=== PATIENT | female | born 1940 | race African-American/Black ===

== ENCOUNTER 2017-12-10 12:05 | Emergency (ER) | payer OTHER ==
[2017-12-10 12:20] LABS: POC GLUCOSE 232 mg/dL (70-99)
[2017-12-10] MEDS: oxyCODONE/APAP 5/325 1 TAB TABLET PO (13:15)
[2017-12-10] MEDS ORDERED: LIDOCAINE WITH 8.4% SOD BICARB 3 ML DISP.SYRIN. (13:29)
[2017-12-10] MEDS: LIDOCAINE WITH 8.4% SOD BICARB 3 ML DISP.SYRIN. INJ (13:30)
[2017-12-10] MEDS: LIDOCAINE 2% 20 ML VIAL. IJ (13:30)
== END 2017-12-10 14:34 | disposition home or self-care (01) ==
LOC: ER 12:05
DX: K65.1 Peritoneal abscess (principal); L02.31 Cutaneous abscess of buttock; L02.411 Cutaneous abscess of right axilla; E11.22 Type 2 diabetes mellitus with diabetic chronic kidney disease; I12.9 Hypertensive chronic kidney disease with stage 1 through stage 4 chronic kidney disease, or unspecified chronic kidney disease; N18.9 Chronic kidney disease, unspecified; E78.00 Pure hypercholesterolemia, unspecified; Z90.710 Acquired absence of both cervix and uterus; M19.90 Unspecified osteoarthritis, unspecified site
CPT/HCPCS: 10061; 82962; 99284-25

== ENCOUNTER 2017-12-12 13:55 | Inpatient (IN) | payer OTHER ==
[2017-12-12] MEDS: IV NORMAL SALINE 1000ML BAG 1,000 ML IV ×3 (15:30→22:22)
[2017-12-12] MEDS ORDERED: PROCHLORPERAZINE 25 MG SUPP.RECT. PR (15:45)
[2017-12-12] MEDS ORDERED: DEXTROSE 50% 25 GM / 50ML DISP.SYRIN. IV ×2 (15:45)
[2017-12-12] MEDS ORDERED: PIP/TAZO PER PHARMACY MC (15:45)
[2017-12-12] MEDS ORDERED: IV NORMAL SALINE 1000ML BAG 1,000 ML IV (15:45)
[2017-12-12] MEDS ORDERED: VANCOMYCIN PER PHARMACY MC (15:45)
[2017-12-12] MEDS ORDERED: BISACODYL 10 MG SUPP.RECT. PR (15:45)
[2017-12-12] MEDS ORDERED: MORPHINE SULFATE 4 MG/ML DISP.SYRIN. IV (15:45)
[2017-12-12] MEDS ORDERED: ONDANSETRON PF 4 MG/2 ML VIAL. IV (15:45)
[2017-12-12] MEDS ORDERED: MAG HYDROX/ALUMINUM HYD/SIMETH 30 ML ORAL.SUSP PO (15:45)
[2017-12-12] MEDS ORDERED: PROCHLORPERAZINE 10 MG/2 ML VIAL. IV (15:45)
[2017-12-12] MEDS ORDERED: ACETAMINOPHEN 325 MG TABLET. PO (15:45)
[2017-12-12] MEDS ORDERED: CALCIUM CARBONATE 500 MG TAB.CHEW PO (15:45)
[2017-12-12] MEDS ORDERED: MAGNESIUM HYDROXIDE 2,400 MG/30 ML ORAL.SUSP. PO (15:45)
[2017-12-12 16:09] LABS: BASO # 0.1 x10^3/uL (0.0-0.2); BASO % 1 % (0-3); EOS # 0.1 x10^3/uL (0.0-0.7); EOS % 1 % (0-3); HEMATOCRIT 27.2 % (36.0-47.0); HEMOGLOBIN 8.5 g/dL (12.0-15.5); LYMPH % 6 % (24-48); MEAN CORPUSCULAR HEMOGLOBIN 23 pg (25-35); MEAN CORPUSCULAR HGB CONC 31 g/dL (31-37); MEAN CORPUSCULAR VOLUME 74 fL (79-100); MONO % 6 % (0-9); NEUT # 13.8 x10^3uL (1.8-7.7); NEUT % 86 % (31-73); PLATELET COUNT 236 x10^3/uL (140-400); RED CELL DISTRIBUTION WIDTH 14.6 % (11.5-14.5)
[2017-12-12 16:12] LABS: ADD MAN DIFF? YES
[2017-12-12] MEDS: VANCOMYCIN PER PHARMACY MC ×2 (16:18→16:43)
[2017-12-12 16:24] LABS: ANION GAP 10 (6-14); BLOOD UREA NITROGEN 34 mg/dL (7-20); BUN/CREATININE RATIO 17 (6-20); CALCIUM 9.7 mg/dL (8.5-10.1); CARBON DIOXIDE 24 mmol/L (21-32); CHLORIDE 97 mmol/L (98-107); GFR 29.2; GLUCOSE 306 mg/dL (70-99); POTASSIUM 4.8 mmol/L (3.5-5.1); SODIUM 131 mmol/L (136-145)
[2017-12-12 16:31] LABS: % BANDS 1 % (0-9); % LYMPHS 7 % (24-48); % MONOS 7 % (0-10); % SEGS 85 % (35-66); ALBUMIN 2.4 g/dL (3.4-5.0); ALBUMIN/GLOBULIN RATIO 0.5 (1.0-1.7); ALK PHOS 120 U/L (46-116); ALT (SGPT) 9 U/L (14-59); AST (SGOT) 11 U/L (15-37); TOTAL BILIRUBIN 0.5 mg/dL (0.2-1.0); TOTAL PROTEIN 7.4 g/dL (6.4-8.2)
[2017-12-12 16:32] LABS: HYPOCHROMIA MOD; MICROCYTOSIS MARKED; PLT ESTIMATE ADEQUATE (ADEQUATE); POLYCHROMASIA SLIGHT
[2017-12-12 16:51] LABS: LACTIC ACID 1.2 mmol/L (0.4-2.0)
[2017-12-12] MEDS ORDERED: INSULIN LISPRO 300 UNITS/3 ML INSULN.PEN. SQ (17:00)
[2017-12-12] MEDS: ENOXAPARIN 40 MG/0.4 ML SYRINGE. SQ ×2 (17:00→20:26)
[2017-12-12 17:01] LABS: C-REACTIVE PROTEIN 321.5 mg/L (0-3.3)
[2017-12-12 17:23] LABS: SEDIMENTATION RATE 103 (0-25)
[2017-12-12 17:38] LABS: POC GLUCOSE 234 mg/dL (70-99)
[2017-12-12] MEDS: PIPERACILLIN/TAZOBACTAM 2.25 GM in IV NORMAL SALINE 50ML 50 ML IV (18:12)
[2017-12-12] MEDS: oxyCODONE IR 5 MG TABLET PO (18:25)
[2017-12-12] MEDS: INSULIN LISPRO 300 UNITS/3 ML INSULN.PEN. SQ (18:28)
[2017-12-12] MEDS: VANCOMYCIN 2 GM in IV DEXTROSE 5% 500 ML IV (20:25)
[2017-12-12] MEDS: LACTOBACILLUS RHAMNOSUS GG 1 CAPSULE. PO (21:00)
[2017-12-12] MEDS: DOCUSATE SODIUM 100 MG CAPSULE. PO (21:00)
[2017-12-12 21:32] LABS: POC GLUCOSE 283 mg/dL (70-99)
[2017-12-12] MEDS ORDERED: PIPERACILLIN/TAZOBACTAM 3.375 GM in IV NORMAL SALINE 50ML 50 ML IV (22:00)
[2017-12-13] MEDS: MORPHINE SULFATE 4 MG/ML DISP.SYRIN. IV (04:04)
[2017-12-13 05:03] LABS: ADD MAN DIFF? NO
[2017-12-13 05:28] LABS: BASO % 0 % (0-3); EOS # 0.2 x10^3/uL (0.0-0.7); EOS % 1 % (0-3); HEMATOCRIT 26.7 % (36.0-47.0); HEMOGLOBIN 8.4 g/dL (12.0-15.5); LYMPH # 1.2 x10^3/uL (1.0-4.8); LYMPH % 10 % (24-48); MEAN CORPUSCULAR HEMOGLOBIN 23 pg (25-35); MEAN CORPUSCULAR HGB CONC 31 g/dL (31-37); MEAN CORPUSCULAR VOLUME 73 fL (79-100); MONO # 0.9 x10^3/uL (0.0-1.1); MONO % 8 % (0-9); NEUT # 9.4 x10^3uL (1.8-7.7); NEUT % 80 % (31-73); PLATELET COUNT 233 x10^3/uL (140-400); RED BLOOD COUNT 3.66 x10^6/uL (3.50-5.40); RED CELL DISTRIBUTION WIDTH 14.2 % (11.5-14.5); WHITE BLOOD COUNT 11.7 x10^3/uL (4.0-11.0)
[2017-12-13 05:55] LABS: ALBUMIN 2.3 g/dL (3.4-5.0); ALBUMIN/GLOBULIN RATIO 0.5 (1.0-1.7); ALK PHOS 113 U/L (46-116); ALT (SGPT) 8 U/L (14-59); ANION GAP 12 (6-14); AST (SGOT) 14 U/L (15-37); BLOOD UREA NITROGEN 28 mg/dL (7-20); BUN/CREATININE RATIO 18 (6-20); CALCIUM 8.6 mg/dL (8.5-10.1); CARBON DIOXIDE 23 mmol/L (21-32); CHLORIDE 101 mmol/L (98-107); CREATININE 1.6 mg/dL (0.6-1.0); GFR 37.7; GLUCOSE 211 mg/dL (70-99); POTASSIUM 4.6 mmol/L (3.5-5.1); SODIUM 136 mmol/L (136-145); TOTAL BILIRUBIN 0.5 mg/dL (0.2-1.0); TOTAL PROTEIN 6.5 g/dL (6.4-8.2)
[2017-12-13] MEDS: PIPERACILLIN/TAZOBACTAM 2.25 GM in IV NORMAL SALINE 50ML 50 ML IV ×5 (06:01→23:44)
[2017-12-13] MEDS: ACETAMINOPHEN 325 MG TABLET. PO (06:07)
[2017-12-13 07:33] LABS: POC GLUCOSE 183 mg/dL (70-99)
[2017-12-13] MEDS: DOCUSATE SODIUM 100 MG CAPSULE. PO ×2 (07:46→21:00)
[2017-12-13] MEDS: LACTOBACILLUS RHAMNOSUS GG 1 CAPSULE. PO ×2 (07:46→21:04)
[2017-12-13] MEDS: INSULIN LISPRO 300 UNITS/3 ML INSULN.PEN. SQ ×3 (07:46→17:29)
[2017-12-13] MEDS: IV RINGERS,LACTATED 1000ML 1,000 ML IV (09:04)
[2017-12-13] MEDS ORDERED: ONDANSETRON PF 4 MG/2 ML VIAL. IV (09:15)
[2017-12-13] MEDS ORDERED: MORPHINE SULFATE 4 MG/ML DISP.SYRIN. IV (09:15)
[2017-12-13] MEDS ORDERED: LIDOCAINE 1% PF 2 ML VIAL. ID (09:15)
[2017-12-13] MEDS ORDERED: PROCHLORPERAZINE 10 MG/2 ML VIAL. IV (09:15)
[2017-12-13] MEDS ORDERED: SEVOFLURANE 61 TO 120 MINUTES. IH (09:17)
[2017-12-13] MEDS ORDERED: DEXAMETHASONE SOD PHOS 20 MG/5 ML VIAL. (09:18)
[2017-12-13] MEDS ORDERED: fentaNYL PF VIAL 100 MCG/2 ML VIAL ×2 (09:18→11:03)
[2017-12-13] MEDS ORDERED: PROPOFOL 20 ML IV (09:18)
[2017-12-13] MEDS ORDERED: LIDOCAINE 2% PF Vial for OR 5 ML VIAL. (09:18)
[2017-12-13] MEDS ORDERED: ONDANSETRON PF 4 MG/2 ML VIAL. (09:18)
[2017-12-13] MEDS: IV NORMAL SALINE 1000ML BAG 1,000 ML IV ×2 (09:34→16:51)
[2017-12-13] MEDS ORDERED: ePHEDrine PF IN SALINE 50 MG/5 ML DISP.SYRIN IV (10:54)
[2017-12-13] MEDS: fentaNYL PF VIAL 100 MCG/2 ML VIAL IV ×3 (11:27→12:07)
[2017-12-13 11:39] LABS: POC GLUCOSE 210 mg/dL (70-99)
[2017-12-13] MEDS: INSULIN ASPART 100 UNIT/ML 10ML VIAL. SQ (12:10)
[2017-12-13] MEDS: oxyCODONE IR 5 MG TABLET PO ×2 (12:56→16:54)
[2017-12-13] MEDS: VANCOMYCIN 1 GM in IV DEXTROSE 5 %-0.2 % NACL 250 ML IV (16:50)
[2017-12-13] MEDS: ENOXAPARIN 40 MG/0.4 ML SYRINGE. SQ (16:51)
[2017-12-13 16:59] LABS: POC GLUCOSE 405 mg/dL (70-99)
[2017-12-13] MEDS ORDERED: VANCOMYCIN 1.25 GM in IV DEXTROSE 5 %-0.2 % NACL 250 ML IV (17:00)
[2017-12-13] MEDS ORDERED: NAPROXEN 250 MG TABLET PO (20:00)
[2017-12-13] MEDS: PATCH REMOVAL. MC (21:00)
[2017-12-13] MEDS: GABAPENTIN 100 MG CAPSULE. PO (21:04)
[2017-12-13] MEDS: NYSTATIN TOPICAL POWDER 15GM BOTTLE. TP (21:05)
[2017-12-13] MEDS: MENTHOL/CAMPHOR 0.5%/0.5% LOTION 222ML BOTTLE. TP (21:05)
[2017-12-13] MEDS: INSULIN GLARGINE 300 UNITS/3 ML INSULN.PEN. SQ (21:17)
[2017-12-13 21:21] LABS: POC GLUCOSE 359 mg/dL (70-99)
[2017-12-14] MEDS: IV NORMAL SALINE 1000ML BAG 1,000 ML IV ×2 (02:15→15:19)
[2017-12-14] MEDS: PIPERACILLIN/TAZOBACTAM 2.25 GM in IV NORMAL SALINE 50ML 50 ML IV ×3 (05:52→18:26)
[2017-12-14 07:31] LABS: ADD MAN DIFF? NO
[2017-12-14 07:36] LABS: POC GLUCOSE 184 mg/dL (70-99)
[2017-12-14 07:38] LABS: BASO % 0 % (0-3); EOS % 0 % (0-3); HEMATOCRIT 26.1 % (36.0-47.0); HEMOGLOBIN 8.1 g/dL (12.0-15.5); LYMPH # 1.4 x10^3/uL (1.0-4.8); LYMPH % 12 % (24-48); MEAN CORPUSCULAR HEMOGLOBIN 23 pg (25-35); MEAN CORPUSCULAR HGB CONC 31 g/dL (31-37); MEAN CORPUSCULAR VOLUME 74 fL (79-100); MONO # 0.8 x10^3/uL (0.0-1.1); MONO % 7 % (0-9); NEUT # 9.4 x10^3uL (1.8-7.7); NEUT % 81 % (31-73); PLATELET COUNT 273 x10^3/uL (140-400); RED BLOOD COUNT 3.53 x10^6/uL (3.50-5.40); RED CELL DISTRIBUTION WIDTH 14.5 % (11.5-14.5); WHITE BLOOD COUNT 11.6 x10^3/uL (4.0-11.0)
[2017-12-14 07:45] LABS: ANION GAP 11 (6-14); BLOOD UREA NITROGEN 29 mg/dL (7-20); CALCIUM 8.4 mg/dL (8.5-10.1); CARBON DIOXIDE 22 mmol/L (21-32); CHLORIDE 105 mmol/L (98-107); CREATININE 1.7 mg/dL (0.6-1.0); GFR 35.2; GLUCOSE 200 mg/dL (70-99); POTASSIUM 4.9 mmol/L (3.5-5.1); SODIUM 138 mmol/L (136-145)
[2017-12-14 07:55] LABS: INR 1.1 (0.8-1.1); PROTHROMBIN TIME PATIENT 13.6 SEC (11.7-14.0)
[2017-12-14] MEDS: glyBURIDE 5 MG TABLET PO (08:00)
[2017-12-14] MEDS: PANTOPRAZOLE 40 MG TABLET.DR. PO (08:48)
[2017-12-14] MEDS: LACTOBACILLUS RHAMNOSUS GG 1 CAPSULE. PO ×2 (08:49→20:07)
[2017-12-14] MEDS: DOCUSATE SODIUM 100 MG CAPSULE. PO ×2 (08:49→20:09)
[2017-12-14] MEDS: LOSARTAN POTASSIUM 25 MG TABLET. PO (08:50)
[2017-12-14] MEDS: GABAPENTIN 100 MG CAPSULE. PO ×2 (08:50→14:56)
[2017-12-14] MEDS: MENTHOL/CAMPHOR 0.5%/0.5% LOTION 222ML BOTTLE. TP (08:51)
[2017-12-14] MEDS: LIDOCAINE (700MG/PATCH) PATCH. TP (08:51)
[2017-12-14] MEDS: NYSTATIN TOPICAL POWDER 15GM BOTTLE. TP ×2 (08:51→20:09)
[2017-12-14] MEDS: METOPROLOL SUCC 24HR ER 25 MG TAB.ER.24H. PO (08:51)
[2017-12-14] MEDS: INSULIN LISPRO 300 UNITS/3 ML INSULN.PEN. SQ ×3 (09:06→17:00)
[2017-12-14 11:16] LABS: POC GLUCOSE 159 mg/dL (70-99)
[2017-12-14] MEDS: DULoxetine HCL 30 MG CAPSULE.DR PO (11:29)
[2017-12-14] MEDS: METOPROLOL SUCC 24HR ER 50 MG TAB.ER.24H. PO (11:29)
[2017-12-14] MEDS: LOSARTAN POTASSIUM 50 MG TABLET. PO (11:30)
[2017-12-14] MEDS: HYDROcodone/APAP 5/325MG 1 TAB TABLET PO (11:42)
[2017-12-14] MEDS: DEXAMETHASONE 0.1% OPHTH SOLUTION 5ML BOTTLE. OU ×2 (14:55→20:09)
[2017-12-14] MEDS: VANCOMYCIN PER PHARMACY MC ×2 (15:39→17:28)
[2017-12-14] MEDS ORDERED: WARFARIN 6 MG TABLET. PO (16:00)
[2017-12-14 16:55] LABS: POC GLUCOSE 111 mg/dL (70-99)
[2017-12-14 17:04] LABS: VANC TR 10.2 mcg/mL (10.0-20.0)
[2017-12-14] MEDS: VANCOMYCIN 1 GM in IV DEXTROSE 5 %-0.2 % NACL 250 ML IV (17:20)
[2017-12-14] MEDS: ENOXAPARIN 30 MG/0.3 ML SYRINGE. SQ (17:21)
[2017-12-14] MEDS ORDERED: VANCOMYCIN 1.25 GM in IV 1/2 NORMAL SALINE 250 ML IV (17:30)
[2017-12-14] MEDS: oxyCODONE IR 5 MG TABLET PO (20:08)
[2017-12-14] MEDS: ATORVASTATIN CALCIUM 20 MG TABLET PO (20:08)
[2017-12-14 21:09] LABS: POC GLUCOSE 231 mg/dL (70-99)
[2017-12-14] MEDS: INSULIN GLARGINE 300 UNITS/3 ML INSULN.PEN. SQ (21:13)
[2017-12-15] MEDS: PIPERACILLIN/TAZOBACTAM 2.25 GM in IV NORMAL SALINE 50ML 50 ML IV ×5 (00:18→23:56)
[2017-12-15 03:57] LABS: HEMATOCRIT 25.1 % (36.0-47.0); HEMOGLOBIN 8.1 g/dL (12.0-15.5); MEAN CORPUSCULAR HEMOGLOBIN 24 pg (25-35); MEAN CORPUSCULAR HGB CONC 32 g/dL (31-37); MEAN CORPUSCULAR VOLUME 74 fL (79-100); PLATELET COUNT 305 x10^3/uL (140-400); RED BLOOD COUNT 3.41 x10^6/uL (3.50-5.40); RED CELL DISTRIBUTION WIDTH 14.7 % (11.5-14.5)
[2017-12-15 04:03] LABS: PROTHROMBIN TIME PATIENT 12.8 SEC (11.7-14.0)
[2017-12-15 05:26] LABS: ALBUMIN 2.2 g/dL (3.4-5.0); ALBUMIN/GLOBULIN RATIO 0.4 (1.0-1.7); ALK PHOS 90 U/L (46-116); ALT (SGPT) 10 U/L (14-59); ANION GAP 12 (6-14); AST (SGOT) 11 U/L (15-37); BLOOD UREA NITROGEN 21 mg/dL (7-20); BUN/CREATININE RATIO 12 (6-20); CALCIUM 8.7 mg/dL (8.5-10.1); CARBON DIOXIDE 24 mmol/L (21-32); CHLORIDE 107 mmol/L (98-107); CREATININE 1.7 mg/dL (0.6-1.0); GFR 35.2; GLUCOSE 95 mg/dL (70-99); POTASSIUM 4.4 mmol/L (3.5-5.1); SODIUM 143 mmol/L (136-145); TOTAL BILIRUBIN 0.4 mg/dL (0.2-1.0); TOTAL PROTEIN 7.1 g/dL (6.4-8.2)
[2017-12-15] MEDS: IV NORMAL SALINE 1000ML BAG 1,000 ML IV ×3 (06:22→21:01)
[2017-12-15 07:38] LABS: SEDIMENTATION RATE 100 (0-25)
[2017-12-15] MEDS: NYSTATIN TOPICAL POWDER 15GM BOTTLE. TP ×2 (08:13→20:25)
[2017-12-15] MEDS: oxyCODONE IR 5 MG TABLET PO (08:13)
[2017-12-15] MEDS: LOSARTAN POTASSIUM 50 MG TABLET. PO ×2 (08:14→09:45)
[2017-12-15 08:15] LABS: POC GLUCOSE 83 mg/dL (70-99)
[2017-12-15] MEDS: LACTOBACILLUS RHAMNOSUS GG 1 CAPSULE. PO ×2 (08:15→20:25)
[2017-12-15] MEDS: METOPROLOL SUCC 24HR ER 50 MG TAB.ER.24H. PO (08:15)
[2017-12-15] MEDS: INSULIN LISPRO 300 UNITS/3 ML INSULN.PEN. SQ ×3 (08:15→16:50)
[2017-12-15] MEDS: DOCUSATE SODIUM 100 MG CAPSULE. PO ×2 (08:15→20:25)
[2017-12-15] MEDS: DEXAMETHASONE 0.1% OPHTH SOLUTION 5ML BOTTLE. OU ×3 (08:15→20:25)
[2017-12-15] MEDS: PANTOPRAZOLE 40 MG TABLET.DR. PO (08:15)
[2017-12-15] MEDS: DULoxetine HCL 30 MG CAPSULE.DR PO (08:15)
[2017-12-15] MEDS: LINAGLIPTIN 5 MG TABLET PO (08:15)
[2017-12-15 11:42] LABS: POC GLUCOSE 183 mg/dL (70-99)
[2017-12-15] MEDS: HYDROcodone/APAP 5/325MG 1 TAB TABLET PO ×2 (14:25→21:01)
[2017-12-15] MEDS: ENOXAPARIN 30 MG/0.3 ML SYRINGE. SQ (16:43)
[2017-12-15] MEDS: VANCOMYCIN 1.25 GM in IV 1/2 NORMAL SALINE 250 ML IV (16:44)
[2017-12-15 16:56] LABS: POC GLUCOSE 227 mg/dL (70-99)
[2017-12-15] MEDS: ATORVASTATIN CALCIUM 20 MG TABLET PO (20:25)
[2017-12-15] MEDS: INSULIN GLARGINE 300 UNITS/3 ML INSULN.PEN. SQ (20:31)
[2017-12-15 20:32] LABS: POC GLUCOSE 133 mg/dL (70-99)
[2017-12-16 04:29] LABS: HEMATOCRIT 27.1 % (36.0-47.0); HEMOGLOBIN 8.6 g/dL (12.0-15.5); MEAN CORPUSCULAR HEMOGLOBIN 23 pg (25-35); MEAN CORPUSCULAR HGB CONC 32 g/dL (31-37); MEAN CORPUSCULAR VOLUME 73 fL (79-100); PLATELET COUNT 368 x10^3/uL (140-400); RED BLOOD COUNT 3.73 x10^6/uL (3.50-5.40); RED CELL DISTRIBUTION WIDTH 14.8 % (11.5-14.5); WHITE BLOOD COUNT 8.2 x10^3/uL (4.0-11.0)
[2017-12-16 04:44] LABS: ANION GAP 9 (6-14); BLOOD UREA NITROGEN 15 mg/dL (7-20); CALCIUM 8.9 mg/dL (8.5-10.1); CARBON DIOXIDE 27 mmol/L (21-32); CHLORIDE 106 mmol/L (98-107); CREATININE 1.3 mg/dL (0.6-1.0); GFR 47.9; GLUCOSE 122 mg/dL (70-99); POTASSIUM 3.8 mmol/L (3.5-5.1); SODIUM 142 mmol/L (136-145)
[2017-12-16] MEDS: HYDROcodone/APAP 5/325MG 1 TAB TABLET PO (07:42)
[2017-12-16] MEDS: LACTOBACILLUS RHAMNOSUS GG 1 CAPSULE. PO (08:55)
[2017-12-16] MEDS: DULoxetine HCL 30 MG CAPSULE.DR PO (08:55)
[2017-12-16] MEDS: PANTOPRAZOLE 40 MG TABLET.DR. PO (08:56)
[2017-12-16] MEDS: LINAGLIPTIN 5 MG TABLET PO (08:57)
[2017-12-16] MEDS: METOPROLOL SUCC 24HR ER 50 MG TAB.ER.24H. PO (08:57)
[2017-12-16] MEDS: NYSTATIN TOPICAL POWDER 15GM BOTTLE. TP (08:58)
[2017-12-16] MEDS: INSULIN LISPRO 300 UNITS/3 ML INSULN.PEN. SQ ×2 (08:58→11:49)
[2017-12-16] MEDS: DEXAMETHASONE 0.1% OPHTH SOLUTION 5ML BOTTLE. OU ×2 (08:58→14:00)
[2017-12-16] MEDS ORDERED: NON FORMULARY ITEM (Mirabegron (Myrbetriq) 25 MG) PO (09:00)
[2017-12-16] MEDS: NON FORMULARY ITEM (Mirabegron (Myrbetriq) 25 MG) PO (09:00)
[2017-12-16] MEDS: DOCUSATE SODIUM 100 MG CAPSULE. PO (09:00)
[2017-12-16] MEDS: LOSARTAN POTASSIUM 50 MG TABLET. PO (09:01)
[2017-12-16 10:59] LABS: POC GLUCOSE 148 mg/dL (70-99)
[2017-12-16 11:37] LABS: POC GLUCOSE 257 mg/dL (70-99)
[2017-12-16] MEDS: ACETAMINOPHEN 325 MG TABLET. PO (11:42)
[2017-12-16] MEDS: PIPERACILLIN/TAZOBACTAM 2.25 GM in IV NORMAL SALINE 50ML 50 ML IV (11:42)
[2017-12-16] MEDS: VANCOMYCIN PER PHARMACY MC (13:08)
[2017-12-16] MEDS ORDERED: ENOXAPARIN 40 MG/0.4 ML SYRINGE. SQ (17:00)
[2017-12-20] MEDS ORDERED: ERGOCALCIFEROL (VITAMIN D2) 50,000 UNIT CAPSULE. PO (09:00)
== END 2017-12-16 17:30 | disposition home health service (06) | DRG 579 ==
LOC: 5 SOUTH 16:26 → ER 13:55 → 5 SOUTH 15:22
PROC: 0J9C0ZZ Drainage of Pelvic Region Subcutaneous Tissue and Fascia, Open Approach (ICD-10-PCS; principal; 2017-12-13 10:40)
DX: L02.214 Cutaneous abscess of groin (principal); E43 Unspecified severe protein-calorie malnutrition; N17.0 Acute kidney failure with tubular necrosis; L03.317 Cellulitis of buttock; L03.314 Cellulitis of groin; E11.22 Type 2 diabetes mellitus with diabetic chronic kidney disease; E11.65 Type 2 diabetes mellitus with hyperglycemia; E66.3 Overweight; Z68.29 Body mass index [BMI] 29.0-29.9, adult; E78.00 Pure hypercholesterolemia, unspecified; I12.9 Hypertensive chronic kidney disease with stage 1 through stage 4 chronic kidney disease, or unspecified chronic kidney disease; N18.9 Chronic kidney disease, unspecified; Z90.710 Acquired absence of both cervix and uterus; M19.90 Unspecified osteoarthritis, unspecified site
CPT/HCPCS: 36415; 76856; 76881; 80048; 80053; 80202; 82962; 83036; 83605; 85007; 85025; 85027; 85610; 85651; 86140; 87040; 87071; 87075; 87186; 87205; 96360; 97116-GP; 97162-GP; 97166-GO; 99285; 99285-25; J1100; J1650; J1815; J2270; J2405; J2543; J2704; J3010; J3370; J7030

== ENCOUNTER → 2017-12-22 | Outpatient (CLI) | payer OTHER | END | disposition home or self-care (01) | LOC: PMGWOUND 09:38 | DX: T81.89XA Other complications of procedures, not elsewhere classified, initial encounter (principal); E11.36 Type 2 diabetes mellitus with diabetic cataract; E11.22 Type 2 diabetes mellitus with diabetic chronic kidney disease; I12.9 Hypertensive chronic kidney disease with stage 1 through stage 4 chronic kidney disease, or unspecified chronic kidney disease; N18.9 Chronic kidney disease, unspecified; E78.00 Pure hypercholesterolemia, unspecified; K21.9 Gastro-esophageal reflux disease without esophagitis; M19.90 Unspecified osteoarthritis, unspecified site; Z90.710 Acquired absence of both cervix and uterus; Z68.27 Body mass index [BMI] 27.0-27.9, adult; Z79.4 Long term (current) use of insulin; Y83.8 Other surgical procedures as the cause of abnormal reaction of the patient, or of later complication, without mention of misadventure at the time of the procedure; Y92.89 Other specified places as the place of occurrence of the external cause | CPT/HCPCS: 97597; 97605 ==

== ENCOUNTER 2017-12-26 11:08 | Emergency (ER) | payer OTHER ==
[2017-12-26 11:43] LABS: BILIRUBIN,URINE MODERATE (NEG); CLARITY,URINE CLEAR; COLOR,URINE YELLOW; GLUCOSE,URINE 500 mg/dL (NEG); NITRITE,URINE NEGATIVE (NEG); PH,URINE 5.5; PROTEIN,URINE >=300 mg/dL (NEG-TRACE); UROBILINOGEN,URINE 0.2 mg/dL (0.2 mg/dL)
[2017-12-26] MEDS: ONDANSETRON PF 4 MG/2 ML VIAL. IV (11:49)
[2017-12-26] MEDS: IV NORMAL SALINE 1000ML BAG 1,000 ML IV (11:51)
[2017-12-26 11:55] LABS: BACTERIA,URINE 0 /HPF (0-FEW); RBC,URINE OCC /HPF (0-2); SQUAMOUS EPITHELIAL CELL,UR MANY /LPF; WBC,URINE RARE /HPF (0-4)
[2017-12-26 12:00] LABS: ANION GAP 17 (6-14); BLOOD UREA NITROGEN 28 mg/dL (7-20); BUN/CREATININE RATIO 16 (6-20); CALCIUM 10.1 mg/dL (8.5-10.1); CARBON DIOXIDE 21 mmol/L (21-32); CHLORIDE 97 mmol/L (98-107); CREATININE 1.7 mg/dL (0.6-1.0); GFR 35.2; GLUCOSE 336 mg/dL (70-99); POTASSIUM 4.1 mmol/L (3.5-5.1); SODIUM 135 mmol/L (136-145)
[2017-12-26 12:01] LABS: BASO % 0 % (0-3); EOS # 0.2 x10^3/uL (0.0-0.7); EOS % 1 % (0-3); HEMATOCRIT 31.5 % (36.0-47.0); HEMOGLOBIN 9.7 g/dL (12.0-15.5); LYMPH # 1.2 x10^3/uL (1.0-4.8); LYMPH % 7 % (24-48); MEAN CORPUSCULAR HEMOGLOBIN 22 pg (25-35); MEAN CORPUSCULAR HGB CONC 31 g/dL (31-37); MEAN CORPUSCULAR VOLUME 73 fL (79-100); MONO # 0.6 x10^3/uL (0.0-1.1); MONO % 4 % (0-9); NEUT # 13.6 x10^3uL (1.8-7.7); NEUT % 88 % (31-73); PLATELET COUNT 577 x10^3/uL (140-400); RED BLOOD COUNT 4.33 x10^6/uL (3.50-5.40); RED CELL DISTRIBUTION WIDTH 15.3 % (11.5-14.5); WHITE BLOOD COUNT 15.5 x10^3/uL (4.0-11.0)
[2017-12-26 12:02] LABS: ADD MAN DIFF? YES
[2017-12-26 12:08] LABS: ALBUMIN 3.2 g/dL (3.4-5.0); ALBUMIN/GLOBULIN RATIO 0.6 (1.0-1.7); ALK PHOS 117 U/L (46-116); ALT (SGPT) 10 U/L (14-59); AST (SGOT) 13 U/L (15-37); LIPASE 90 U/L (73-393); TOTAL BILIRUBIN 0.6 mg/dL (0.2-1.0); TOTAL PROTEIN 8.7 g/dL (6.4-8.2)
[2017-12-26 12:08] LABS: TROPONINI < 0.017 ng/mL (0.000-0.055)
[2017-12-26 14:52] LABS: % EOS 2 % (0-5); % LYMPHS 8 % (24-48); % MONOS 6 % (0-10); % SEGS 84 % (35-66); ANISOCYTOSIS SLIGHT; HYPOCHROMIA MOD; MICROCYTOSIS SLIGHT; PLT ESTIMATE INCREASED (ADEQUATE)
[2017-12-26 14:53] LABS: ROULEAUX PRESENT
== END 2017-12-26 13:42 | disposition home or self-care (01) ==
LOC: ER 11:08
DX: R11.2 Nausea with vomiting, unspecified (principal); I12.9 Hypertensive chronic kidney disease with stage 1 through stage 4 chronic kidney disease, or unspecified chronic kidney disease; N18.9 Chronic kidney disease, unspecified; E11.22 Type 2 diabetes mellitus with diabetic chronic kidney disease; E78.00 Pure hypercholesterolemia, unspecified; Z90.710 Acquired absence of both cervix and uterus; Z91.041 Radiographic dye allergy status
CPT/HCPCS: 36415; 71045; 80053; 81001; 83690; 84484; 85007; 85025; 93005; 96361; 96374; 99285-25; J2405; J7030

== ENCOUNTER → 2017-12-29 | Outpatient (CLI) | payer OTHER | END | disposition home or self-care (01) | LOC: PMGWOUND 09:36 | DX: T81.89XD Other complications of procedures, not elsewhere classified, subsequent encounter (principal); E11.36 Type 2 diabetes mellitus with diabetic cataract; E11.22 Type 2 diabetes mellitus with diabetic chronic kidney disease; I12.9 Hypertensive chronic kidney disease with stage 1 through stage 4 chronic kidney disease, or unspecified chronic kidney disease; N18.9 Chronic kidney disease, unspecified; E11.65 Type 2 diabetes mellitus with hyperglycemia; E78.00 Pure hypercholesterolemia, unspecified; K21.9 Gastro-esophageal reflux disease without esophagitis; M19.90 Unspecified osteoarthritis, unspecified site; Z90.710 Acquired absence of both cervix and uterus; Z79.4 Long term (current) use of insulin; Y83.8 Other surgical procedures as the cause of abnormal reaction of the patient, or of later complication, without mention of misadventure at the time of the procedure | CPT/HCPCS: 99214 ==

== ENCOUNTER 2018-01-04 19:24 | Inpatient (IN) | payer OTHER ==
[2018-01-04] MEDS: MORPHINE SULFATE 4 MG/ML DISP.SYRIN. IV (20:42)
[2018-01-04] MEDS: ONDANSETRON PF 4 MG/2 ML VIAL. IV (20:42)
[2018-01-04 20:58] LABS: BILIRUBIN,URINE SMALL (NEG); CLARITY,URINE CLEAR; COLOR,URINE YELLOW; GLUCOSE,URINE NEGATIVE (NEG); NITRITE,URINE NEGATIVE (NEG); PROTEIN,URINE NEGATIVE (NEG-TRACE); UROBILINOGEN,URINE 0.2 mg/dL (0.2 mg/dL)
[2018-01-04 21:02] LABS: ANION GAP 19 (6-14); BLOOD UREA NITROGEN 68 mg/dL (7-20); BUN/CREATININE RATIO 10 (6-20); CALCIUM 9.4 mg/dL (8.5-10.1); CARBON DIOXIDE 19 mmol/L (21-32); CHLORIDE 101 mmol/L (98-107); CREATININE 6.7 mg/dL (0.6-1.0); GFR 7.2; GLUCOSE 204 mg/dL (70-99); POTASSIUM 4.5 mmol/L (3.5-5.1); SODIUM 139 mmol/L (136-145)
[2018-01-04 21:05] LABS: BASO # 0.1 x10^3/uL (0.0-0.2); BASO % 1 % (0-3); EOS # 0.1 x10^3/uL (0.0-0.7); EOS % 1 % (0-3); HEMATOCRIT 26.8 % (36.0-47.0); HEMOGLOBIN 8.5 g/dL (12.0-15.5); LYMPH # 1.3 x10^3/uL (1.0-4.8); LYMPH % 12 % (24-48); MEAN CORPUSCULAR HEMOGLOBIN 23 pg (25-35); MEAN CORPUSCULAR HGB CONC 32 g/dL (31-37); MEAN CORPUSCULAR VOLUME 71 fL (79-100); MONO # 0.8 x10^3/uL (0.0-1.1); MONO % 8 % (0-9); NEUT # 8.5 x10^3uL (1.8-7.7); NEUT % 79 % (31-73); PLATELET COUNT 322 x10^3/uL (140-400); RED BLOOD COUNT 3.77 x10^6/uL (3.50-5.40); RED CELL DISTRIBUTION WIDTH 15.5 % (11.5-14.5); WHITE BLOOD COUNT 10.7 x10^3/uL (4.0-11.0)
[2018-01-04 21:10] LABS: ALBUMIN 2.7 g/dL (3.4-5.0); ALBUMIN/GLOBULIN RATIO 0.5 (1.0-1.7); ALK PHOS 113 U/L (46-116); ALT (SGPT) 10 U/L (14-59); AST (SGOT) 9 U/L (15-37); LIPASE 88 U/L (73-393); TOTAL BILIRUBIN 0.8 mg/dL (0.2-1.0)
[2018-01-04 21:14] LABS: AMORPHOUS SEDIMENT,UR PRESENT /HPF; BACTERIA,URINE 0 /HPF (0-FEW); RBC,URINE 0 /HPF (0-2); SQUAMOUS EPITHELIAL CELL,UR OCC /LPF; WBC,URINE OCC /HPF (0-4)
[2018-01-04 21:15] LABS: HYALINE CASTS, URINE OCCASIONAL /HPF
[2018-01-04 21:56] LABS: BASE EXCESS ABG -8 mmol/L (-3-3); HCO3 ABG 18 mmol/L (21-28); PCO2 ABG 36 mmHg (35-46); PH ABG 7.31 (7.35-7.45); PO2 ABG 73 mmHg (65-108); SAT O2 ABG 92 % (92-99)
[2018-01-04 22:08] LABS: ANISOCYTOSIS MOD; HYPOCHROMIA SLIGHT; MICROCYTOSIS MOD; PLT ESTIMATE ADEQUATE (ADEQUATE)
[2018-01-04 22:16] LABS: FIO2 ABG 21
[2018-01-04 22:17] LABS: ADD MAN DIFF? NO
[2018-01-04] MEDS: IV NORMAL SALINE 1000ML BAG 1,000 ML IV (23:22)
[2018-01-05] MEDS: IV NORMAL SALINE 1000ML BAG 1,000 ML IV ×2 (01:34→15:30)
[2018-01-05 08:03] LABS: POC GLUCOSE 159 mg/dL (70-99)
[2018-01-05 09:09] LABS: ANION GAP 12 (6-14); BLOOD UREA NITROGEN 65 mg/dL (7-20); CALCIUM 9.4 mg/dL (8.5-10.1); CARBON DIOXIDE 21 mmol/L (21-32); CHLORIDE 105 mmol/L (98-107); CREATININE 5.5 mg/dL (0.6-1.0); GFR 9.1; GLUCOSE 179 mg/dL (70-99); POTASSIUM 4.5 mmol/L (3.5-5.1); SODIUM 138 mmol/L (136-145)
[2018-01-05 11:32] LABS: POC GLUCOSE 280 mg/dL (70-99)
[2018-01-05] MEDS: fentaNYL PF VIAL 100 MCG/2 ML VIAL IV ×2 (13:27→18:01)
[2018-01-05 17:39] LABS: POC GLUCOSE 224 mg/dL (70-99)
[2018-01-05] MEDS: DEXAMETHASONE 0.1% OPHTH SOLUTION 5ML BOTTLE. OD ×2 (18:00→21:33)
[2018-01-05] MEDS ORDERED: ONDANSETRON ODT 4 MG TAB.RAPDIS. PO (19:00)
[2018-01-05] MEDS ORDERED: oxyCODONE IR 5 MG TABLET PO ×3 (19:15)
[2018-01-05] MEDS ORDERED: NON FORMULARY ITEM (Difluprednate (Durezol) 5 ML) OP (21:00)
[2018-01-05 21:27] LABS: POC GLUCOSE 241 mg/dL (70-99)
[2018-01-05] MEDS: NYSTATIN TOPICAL POWDER 15GM BOTTLE. TP (21:34)
[2018-01-05] MEDS: FAMOTIDINE 20 MG TABLET. PO (21:36)
[2018-01-05] MEDS: INSULIN GLARGINE 300 UNITS/3 ML INSULN.PEN. SQ (21:42)
[2018-01-06] MEDS: oxyCODONE IR 5 MG TABLET PO (04:58)
[2018-01-06] MEDS: DEXAMETHASONE 0.1% OPHTH SOLUTION 5ML BOTTLE. OD ×5 (05:00→20:33)
[2018-01-06 05:34] LABS: ALBUMIN 2.1 g/dL (3.4-5.0); ANION GAP 13 (6-14); BLOOD UREA NITROGEN 58 mg/dL (7-20); CALCIUM 8.8 mg/dL (8.5-10.1); CARBON DIOXIDE 20 mmol/L (21-32); CHLORIDE 105 mmol/L (98-107); CREATINE KINASE 26 U/L (26-192); CREATININE 4.3 mg/dL (0.6-1.0); GFR 12.1; GLUCOSE 273 mg/dL (70-99); PHOSPHORUS 4.3 mg/dL (2.6-4.7); POTASSIUM 4.4 mmol/L (3.5-5.1); SODIUM 138 mmol/L (136-145)
[2018-01-06 08:24] LABS: POC GLUCOSE 262 mg/dL (70-99)
[2018-01-06] MEDS: LOSARTAN POTASSIUM 50 MG TABLET. PO (09:00)
[2018-01-06] MEDS: NON FORMULARY ITEM (Mirabegron (Myrbetriq) 25 MG) PO (09:00)
[2018-01-06] MEDS: LINAGLIPTIN 5 MG TABLET PO (09:03)
[2018-01-06] MEDS: DULoxetine HCL 30 MG CAPSULE.DR PO (09:03)
[2018-01-06] MEDS: NAPROXEN 250 MG TABLET PO (09:03)
[2018-01-06] MEDS: NYSTATIN TOPICAL POWDER 15GM BOTTLE. TP ×2 (09:04→20:32)
[2018-01-06] MEDS: METOPROLOL SUCC 24HR ER 50 MG TAB.ER.24H. PO (09:05)
[2018-01-06] MEDS ORDERED: DEXTROSE 50% 25 GM / 50ML DISP.SYRIN. IV (10:45)
[2018-01-06 11:46] LABS: POC GLUCOSE 352 mg/dL (70-99)
[2018-01-06] MEDS: INSULIN LISPRO 300 UNITS/3 ML INSULN.PEN. SQ ×3 (12:00→17:00)
[2018-01-06] MEDS: OXYBUTYNIN CHLORIDE 5 MG TABLET PO ×2 (13:56→20:32)
[2018-01-06 16:56] LABS: POC GLUCOSE 143 mg/dL (70-99)
[2018-01-06] MEDS: ATORVASTATIN CALCIUM 20 MG TABLET PO (20:32)
[2018-01-06] MEDS: FAMOTIDINE 20 MG TABLET. PO (20:33)
[2018-01-06 21:03] LABS: POC GLUCOSE 201 mg/dL (70-99)
[2018-01-06] MEDS: INSULIN GLARGINE 300 UNITS/3 ML INSULN.PEN. SQ (21:25)
[2018-01-07] MEDS: DEXAMETHASONE 0.1% OPHTH SOLUTION 5ML BOTTLE. OD ×5 (05:34→20:40)
[2018-01-07] MEDS: INSULIN LISPRO 300 UNITS/3 ML INSULN.PEN. SQ ×3 (08:00→17:37)
[2018-01-07 08:34] LABS: POC GLUCOSE 139 mg/dL (70-99)
[2018-01-07] MEDS: NYSTATIN TOPICAL POWDER 15GM BOTTLE. TP ×2 (08:52→20:39)
[2018-01-07] MEDS: NAPROXEN 250 MG TABLET PO (08:52)
[2018-01-07] MEDS: LOSARTAN POTASSIUM 50 MG TABLET. PO (08:53)
[2018-01-07] MEDS: METOPROLOL SUCC 24HR ER 50 MG TAB.ER.24H. PO (08:54)
[2018-01-07] MEDS: LINAGLIPTIN 5 MG TABLET PO (08:54)
[2018-01-07] MEDS: OXYBUTYNIN CHLORIDE 5 MG TABLET PO (08:54)
[2018-01-07] MEDS: DULoxetine HCL 30 MG CAPSULE.DR PO (08:54)
[2018-01-07 10:24] LABS: POC GLUCOSE 199 mg/dL (70-99)
[2018-01-07 11:37] LABS: ANION GAP 10 (6-14); BLOOD UREA NITROGEN 57 mg/dL (7-20); CALCIUM 9.5 mg/dL (8.5-10.1); CARBON DIOXIDE 23 mmol/L (21-32); CHLORIDE 104 mmol/L (98-107); CREATININE 4.1 mg/dL (0.6-1.0); GFR 12.7; GLUCOSE 236 mg/dL (70-99); POTASSIUM 5.4 mmol/L (3.5-5.1); SODIUM 137 mmol/L (136-145)
[2018-01-07] MEDS ORDERED: SODIUM POLYSTYRENE SULFONATE 15 GM/60 ML ORAL.SUSP. PO (13:00)
[2018-01-07 16:43] LABS: POC GLUCOSE 202 mg/dL (70-99)
[2018-01-07] MEDS: oxyCODONE IR 5 MG TABLET PO (19:10)
[2018-01-07] MEDS: FAMOTIDINE 20 MG TABLET. PO (20:19)
[2018-01-07] MEDS: ATORVASTATIN CALCIUM 20 MG TABLET PO (20:19)
[2018-01-07 20:28] LABS: POC GLUCOSE 129 mg/dL (70-99)
[2018-01-07] MEDS: INSULIN GLARGINE 300 UNITS/3 ML INSULN.PEN. SQ (20:43)
[2018-01-07 23:17] LABS: BILIRUBIN,URINE NEGATIVE (NEG); CLARITY,URINE CLOUDY; COLOR,URINE YELLOW; GLUCOSE,URINE NEGATIVE (NEG); NITRITE,URINE POSITIVE (NEG); PH,URINE 5.5; PROTEIN,URINE 30 mg/dL (NEG-TRACE); UROBILINOGEN,URINE 0.2 mg/dL (0.2 mg/dL)
[2018-01-07 23:28] LABS: BACTERIA,URINE MANY /HPF (0-FEW); SQUAMOUS EPITHELIAL CELL,UR MOD /LPF; WBC,URINE >40 /HPF (0-4); YEAST,URINE PRESENT /HPF
[2018-01-08 05:28] LABS: HEMATOCRIT 23.9 % (36.0-47.0); HEMOGLOBIN 7.6 g/dL (12.0-15.5); MEAN CORPUSCULAR HEMOGLOBIN 23 pg (25-35); MEAN CORPUSCULAR HGB CONC 32 g/dL (31-37); MEAN CORPUSCULAR VOLUME 71 fL (79-100); PLATELET COUNT 264 x10^3/uL (140-400); RED BLOOD COUNT 3.35 x10^6/uL (3.50-5.40); RED CELL DISTRIBUTION WIDTH 15.1 % (11.5-14.5); WHITE BLOOD COUNT 8.2 x10^3/uL (4.0-11.0)
[2018-01-08] MEDS: DEXAMETHASONE 0.1% OPHTH SOLUTION 5ML BOTTLE. OD ×2 (05:30→10:00)
[2018-01-08 06:12] LABS: ALBUMIN 2.5 g/dL (3.4-5.0); ALBUMIN/GLOBULIN RATIO 0.5 (1.0-1.7); ALK PHOS 99 U/L (46-116); ALT (SGPT) 9 U/L (14-59); ANION GAP 12 (6-14); AST (SGOT) 10 U/L (15-37); BLOOD UREA NITROGEN 58 mg/dL (7-20); BUN/CREATININE RATIO 16 (6-20); CARBON DIOXIDE 22 mmol/L (21-32); CHLORIDE 105 mmol/L (98-107); CREATININE 3.7 mg/dL (0.6-1.0); GFR 14.3; GLUCOSE 194 mg/dL (70-99); POTASSIUM 5.1 mmol/L (3.5-5.1); SODIUM 139 mmol/L (136-145); TOTAL BILIRUBIN 0.5 mg/dL (0.2-1.0); TOTAL PROTEIN 7.4 g/dL (6.4-8.2)
[2018-01-08 07:18] LABS: SEDIMENTATION RATE 98 (0-25)
[2018-01-08] MEDS: INSULIN LISPRO 300 UNITS/3 ML INSULN.PEN. SQ ×2 (07:59→12:07)
[2018-01-08] MEDS: DULoxetine HCL 30 MG CAPSULE.DR PO (08:00)
[2018-01-08] MEDS: METOPROLOL SUCC 24HR ER 50 MG TAB.ER.24H. PO (08:00)
[2018-01-08] MEDS: NYSTATIN TOPICAL POWDER 15GM BOTTLE. TP (08:02)
[2018-01-08 08:06] LABS: POC GLUCOSE 113 mg/dL (70-99)
[2018-01-08 11:13] LABS: POC GLUCOSE 189 mg/dL (70-99)
[2018-01-12] MEDS ORDERED: ERGOCALCIFEROL (VITAMIN D2) 50,000 UNIT CAPSULE. PO (09:00)
== END 2018-01-08 14:30 | disposition home health service (06) | DRG 682 ==
LOC: 5 NORTH 01-05 00:11 → ER 19:24
DX: N17.0 Acute kidney failure with tubular necrosis (principal); E43 Unspecified severe protein-calorie malnutrition; E11.22 Type 2 diabetes mellitus with diabetic chronic kidney disease; E87.5 Hyperkalemia; L02.215 Cutaneous abscess of perineum; D64.9 Anemia, unspecified; I12.9 Hypertensive chronic kidney disease with stage 1 through stage 4 chronic kidney disease, or unspecified chronic kidney disease; E78.00 Pure hypercholesterolemia, unspecified; E78.5 Hyperlipidemia, unspecified; K64.9 Unspecified hemorrhoids; M19.90 Unspecified osteoarthritis, unspecified site; N18.9 Chronic kidney disease, unspecified; Z83.3 Family history of diabetes mellitus; Z90.710 Acquired absence of both cervix and uterus; F41.9 Anxiety disorder, unspecified; G89.29 Other chronic pain; Z91.041 Radiographic dye allergy status; Z68.24 Body mass index [BMI] 24.0-24.9, adult; T50.905A Adverse effect of unspecified drugs, medicaments and biological substances, initial encounter; Y92.89 Other specified places as the place of occurrence of the external cause
CPT/HCPCS: 36415; 36600; 71045; 74176; 76770; 80048; 80053; 80069; 81001; 82550; 82805; 82962; 83690; 85025; 85027; 85651; 93005; 96361; 96374; 96375; 97161-GP; 97165-GO; 97530-GO; 97535-GO; 99285; 99285-25; J1815; J2270; J2405; J3010; J7030

== ENCOUNTER → 2018-01-19 | Outpatient (CLI) | payer OTHER | END | disposition home or self-care (01) | LOC: PMGWOUND 09:29 | DX: T81.89XD Other complications of procedures, not elsewhere classified, subsequent encounter (principal); E11.36 Type 2 diabetes mellitus with diabetic cataract; E11.22 Type 2 diabetes mellitus with diabetic chronic kidney disease; I12.9 Hypertensive chronic kidney disease with stage 1 through stage 4 chronic kidney disease, or unspecified chronic kidney disease; N18.9 Chronic kidney disease, unspecified; E11.65 Type 2 diabetes mellitus with hyperglycemia; E78.00 Pure hypercholesterolemia, unspecified; K21.9 Gastro-esophageal reflux disease without esophagitis; M19.90 Unspecified osteoarthritis, unspecified site; Z90.710 Acquired absence of both cervix and uterus; Z79.4 Long term (current) use of insulin; Y83.8 Other surgical procedures as the cause of abnormal reaction of the patient, or of later complication, without mention of misadventure at the time of the procedure | CPT/HCPCS: 17250 ==

== ENCOUNTER 2018-01-26 13:39 | Inpatient (IN) | payer OTHER ==
[2018-01-26] MEDS: IV NORMAL SALINE 1000ML BAG 1,000 ML IV ×2 (14:07→15:41)
[2018-01-26] MEDS: ONDANSETRON PF 4 MG/2 ML VIAL. IV ×2 (14:07→16:30)
[2018-01-26 14:23] LABS: ADD MAN DIFF? NO
[2018-01-26 14:27] LABS: BASO # 0.1 x10^3/uL (0.0-0.2); BASO % 1 % (0-3); EOS # 0.1 x10^3/uL (0.0-0.7); EOS % 2 % (0-3); HEMATOCRIT 25.4 % (36.0-47.0); HEMOGLOBIN 7.8 g/dL (12.0-15.5); LYMPH # 1.2 x10^3/uL (1.0-4.8); LYMPH % 19 % (24-48); MEAN CORPUSCULAR HEMOGLOBIN 22 pg (25-35); MEAN CORPUSCULAR HGB CONC 31 g/dL (31-37); MEAN CORPUSCULAR VOLUME 73 fL (79-100); MONO # 0.2 x10^3/uL (0.0-1.1); MONO % 2 % (0-9); NEUT # 4.9 x10^3uL (1.8-7.7); NEUT % 76 % (31-73); PLATELET COUNT 426 x10^3/uL (140-400); RED CELL DISTRIBUTION WIDTH 16.8 % (11.5-14.5); WHITE BLOOD COUNT 6.4 x10^3/uL (4.0-11.0)
[2018-01-26 14:36] LABS: INR 1.1 (0.8-1.1); PARTIAL THROMBOPLASTIN TIME 32 SEC (24-38); PROTHROMBIN TIME PATIENT 13.5 SEC (11.7-14.0)
[2018-01-26 14:38] LABS: ANION GAP 16 (6-14); BLOOD UREA NITROGEN 50 mg/dL (7-20); BUN/CREATININE RATIO 17 (6-20); CALCIUM 9.2 mg/dL (8.5-10.1); CARBON DIOXIDE 16 mmol/L (21-32); CHLORIDE 102 mmol/L (98-107); CREATININE 2.9 mg/dL (0.6-1.0); GLUCOSE 207 mg/dL (70-99); POTASSIUM 5.6 mmol/L (3.5-5.1); SODIUM 134 mmol/L (136-145)
[2018-01-26 14:44] LABS: ALBUMIN 3.1 g/dL (3.4-5.0); ALBUMIN/GLOBULIN RATIO 0.6 (1.0-1.7); ALK PHOS 97 U/L (46-116); ALT (SGPT) 16 U/L (14-59); AST (SGOT) 26 U/L (15-37); LIPASE 234 U/L (73-393); TOTAL BILIRUBIN 0.4 mg/dL (0.2-1.0); TOTAL PROTEIN 8.4 g/dL (6.4-8.2)
[2018-01-26 14:49] LABS: TROPONINI < 0.017 ng/mL (0.000-0.055)
[2018-01-26 15:00] LABS: LACTIC ACID 5.3 mmol/L (0.4-2.0)
[2018-01-26 15:05] LABS: NT-PRO BNP 587 pg/mL (0-449)
[2018-01-26 15:05] LABS: CKMB MASS 0.7 ng/mL (0.0-3.6); CREATINE KINASE 38 U/L (26-192)
[2018-01-26 15:09] LABS: BILIRUBIN,URINE NEGATIVE (NEG); CLARITY,URINE CLEAR; COLOR,URINE YELLOW; GLUCOSE,URINE 100 mg/dL (NEG); NITRITE,URINE NEGATIVE (NEG); PH,URINE 5.5; PROTEIN,URINE NEGATIVE (NEG-TRACE); UROBILINOGEN,URINE 0.2 mg/dL (0.2 mg/dL)
[2018-01-26 15:20] LABS: SQUAMOUS EPITHELIAL CELL,UR MOD /LPF
[2018-01-26 15:22] LABS: BACTERIA,URINE MODERATE /HPF (0-FEW); RBC,URINE OCC /HPF (0-2)
[2018-01-26] MEDS: fentaNYL PF VIAL 100 MCG/2 ML VIAL IV (15:41)
[2018-01-26] MEDS: LABETALOL 20 MG/4 ML DISP.SYRIN. IVP (15:46)
[2018-01-26 15:47] LABS: BASE EXCESS ABG -10 mmol/L (-3-3); HCO3 ABG 10 mmol/L (21-28); PO2 ABG 92 mmHg (65-108); SAT O2 ABG 98 % (92-99)
[2018-01-26 15:51] LABS: PCO2 ABG < 15 mmHg (35-46); PH ABG 7.57 (7.35-7.45)
[2018-01-26] MEDS ORDERED: ONDANSETRON PF 4 MG/2 ML VIAL. IV (16:00)
[2018-01-26] MEDS ORDERED: fentaNYL PF VIAL 100 MCG/2 ML VIAL IV (16:00)
[2018-01-26] MEDS ORDERED: DOCUSATE SODIUM 100 MG CAPSULE. PO (16:15)
[2018-01-26] MEDS ORDERED: DEXTROSE 50% 25 GM / 50ML DISP.SYRIN. IV (16:15)
[2018-01-26 16:23] LABS: ANISOCYTOSIS MOD; HYPOCHROMIA MOD; MICROCYTOSIS MOD; PLT ESTIMATE ADEQUATE (ADEQUATE)
[2018-01-26 16:24] LABS: SALIC < 2.8 mg/dL (2.8-20.0)
[2018-01-26] MEDS: MORPHINE SULFATE 2 MG/ML DISP.SYRIN. IV ×2 (16:31→18:54)
[2018-01-26] MEDS: INSULIN LISPRO 300 UNITS/3 ML INSULN.PEN. SQ (17:00)
[2018-01-26 17:21] LABS: LACTIC ACID 4.6 mmol/L (0.4-2.0)
[2018-01-26] MEDS: PANTOPRAZOLE IV PUSH 40 MG VIAL. IVP (17:30)
[2018-01-26] MEDS: hydrALAZINE 20 MG/ML VIAL. IVP (17:49)
[2018-01-26 18:25] LABS: POC GLUCOSE 296 mg/dL (70-99)
[2018-01-26] MEDS: NON FORMULARY ITEM (Difluprednate (Durezol) 5 ML) OP (21:00)
[2018-01-26] MEDS: ATORVASTATIN CALCIUM 20 MG TABLET PO (21:15)
[2018-01-26] MEDS: NYSTATIN TOPICAL POWDER 15GM BOTTLE. TP (21:15)
[2018-01-26] MEDS: oxyCODONE IR 5 MG TABLET PO (21:16)
[2018-01-26] MEDS: HEPARIN PF for SUB-Q USE 5,000 UNIT/0.5 ML VIAL. SQ (21:21)
[2018-01-26 21:32] LABS: POC GLUCOSE 247 mg/dL (70-99)
[2018-01-27] MEDS: hydrALAZINE 20 MG/ML VIAL. IVP (02:48)
[2018-01-27 05:23] LABS: ADD MAN DIFF? NO
[2018-01-27 05:35] LABS: BASO # 0.1 x10^3/uL (0.0-0.2); BASO % 1 % (0-3); EOS % 0 % (0-3); HEMOGLOBIN 7.9 g/dL (12.0-15.5); LYMPH # 1.5 x10^3/uL (1.0-4.8); LYMPH % 18 % (24-48); MEAN CORPUSCULAR HEMOGLOBIN 23 pg (25-35); MEAN CORPUSCULAR HGB CONC 32 g/dL (31-37); MEAN CORPUSCULAR VOLUME 72 fL (79-100); MONO # 0.5 x10^3/uL (0.0-1.1); MONO % 5 % (0-9); NEUT # 6.6 x10^3uL (1.8-7.7); NEUT % 76 % (31-73); PLATELET COUNT 433 x10^3/uL (140-400); RED BLOOD COUNT 3.47 x10^6/uL (3.50-5.40); WHITE BLOOD COUNT 8.6 x10^3/uL (4.0-11.0)
[2018-01-27 05:36] LABS: LACTIC ACID 2.5 mmol/L (0.4-2.0)
[2018-01-27 05:55] LABS: ANION GAP 15 (6-14); BLOOD UREA NITROGEN 50 mg/dL (7-20); CARBON DIOXIDE 19 mmol/L (21-32); CHLORIDE 105 mmol/L (98-107); CREATININE 3.1 mg/dL (0.6-1.0); GFR 17.6; GLUCOSE 198 mg/dL (70-99); POTASSIUM 5.1 mmol/L (3.5-5.1); SODIUM 139 mmol/L (136-145)
[2018-01-27] MEDS: HEPARIN PF for SUB-Q USE 5,000 UNIT/0.5 ML VIAL. SQ ×3 (06:30→21:23)
[2018-01-27] MEDS: INSULIN LISPRO 300 UNITS/3 ML INSULN.PEN. SQ ×3 (08:00→18:20)
[2018-01-27 08:07] LABS: POC GLUCOSE 157 mg/dL (70-99)
[2018-01-27] MEDS: PANTOPRAZOLE IV PUSH 40 MG VIAL. IVP (08:22)
[2018-01-27] MEDS: DULoxetine HCL 30 MG CAPSULE.DR PO (08:23)
[2018-01-27] MEDS: NYSTATIN TOPICAL POWDER 15GM BOTTLE. TP ×2 (08:23→21:00)
[2018-01-27] MEDS: METOPROLOL SUCC 24HR ER 50 MG TAB.ER.24H. PO (08:24)
[2018-01-27] MEDS: NON FORMULARY ITEM (Difluprednate (Durezol) 5 ML) OP (09:00)
[2018-01-27 11:05] LABS: LACTIC ACID 3.8 mmol/L (0.4-2.0)
[2018-01-27 12:10] LABS: POC GLUCOSE 209 mg/dL (70-99)
[2018-01-27 14:14] LABS: % SAT IRON 18 % (15-34); IRON,SERUM 30 ug/dL (50-170)
[2018-01-27 14:32] LABS: LACTIC ACID 2.8 mmol/L (0.4-2.0)
[2018-01-27 16:44] LABS: POC GLUCOSE 202 mg/dL (70-99)
[2018-01-27 18:53] LABS: LACTIC ACID 1.7 mmol/L (0.4-2.0)
[2018-01-27] MEDS: ATORVASTATIN CALCIUM 20 MG TABLET PO (21:21)
[2018-01-27 21:24] LABS: POC GLUCOSE 160 mg/dL (70-99)
[2018-01-28 05:45] LABS: ADD MAN DIFF? NO
[2018-01-28 05:52] LABS: BASO % 1 % (0-3); EOS # 0.1 x10^3/uL (0.0-0.7); EOS % 1 % (0-3); HEMATOCRIT 21.9 % (36.0-47.0); LYMPH % 40 % (24-48); MEAN CORPUSCULAR HEMOGLOBIN 22 pg (25-35); MEAN CORPUSCULAR HGB CONC 31 g/dL (31-37); MEAN CORPUSCULAR VOLUME 72 fL (79-100); MONO # 0.5 x10^3/uL (0.0-1.1); MONO % 6 % (0-9); NEUT # 3.9 x10^3uL (1.8-7.7); NEUT % 52 % (31-73); PLATELET COUNT 347 x10^3/uL (140-400); RED BLOOD COUNT 3.06 x10^6/uL (3.50-5.40); RED CELL DISTRIBUTION WIDTH 17.1 % (11.5-14.5); WHITE BLOOD COUNT 7.5 x10^3/uL (4.0-11.0)
[2018-01-28] MEDS: HEPARIN PF for SUB-Q USE 5,000 UNIT/0.5 ML VIAL. SQ (06:00)
[2018-01-28 06:16] LABS: HEMOGLOBIN 6.8 g/dL (12.0-15.5)
[2018-01-28 06:21] LABS: ALBUMIN 2.6 g/dL (3.4-5.0); ALBUMIN/GLOBULIN RATIO 0.7 (1.0-1.7); ALK PHOS 89 U/L (46-116); ALT (SGPT) 10 U/L (14-59); ANION GAP 11 (6-14); AST (SGOT) 13 U/L (15-37); BLOOD UREA NITROGEN 42 mg/dL (7-20); BUN/CREATININE RATIO 14 (6-20); CALCIUM 9.1 mg/dL (8.5-10.1); CARBON DIOXIDE 22 mmol/L (21-32); CHLORIDE 107 mmol/L (98-107); GFR 18.3; GLUCOSE 141 mg/dL (70-99); POTASSIUM 5.1 mmol/L (3.5-5.1); SODIUM 140 mmol/L (136-145); TOTAL BILIRUBIN 0.5 mg/dL (0.2-1.0); TOTAL PROTEIN 6.5 g/dL (6.4-8.2)
[2018-01-28 07:25] LABS: POC GLUCOSE 135 mg/dL (70-99)
[2018-01-28] MEDS ORDERED: PANTOPRAZOLE 40 MG TABLET.DR. PO (07:30)
[2018-01-28] MEDS: INSULIN LISPRO 300 UNITS/3 ML INSULN.PEN. SQ ×3 (08:00→17:58)
[2018-01-28 08:12] LABS: PROCALCITONIN 0.87 ng/mL (0.00-0.10)
[2018-01-28] MEDS: NYSTATIN TOPICAL POWDER 15GM BOTTLE. TP ×2 (09:00→20:07)
[2018-01-28] MEDS: ACETAMINOPHEN 325 MG TABLET. PO ×2 (09:39→17:55)
[2018-01-28] MEDS: METOPROLOL SUCC 24HR ER 50 MG TAB.ER.24H. PO (09:39)
[2018-01-28] MEDS: DULoxetine HCL 30 MG CAPSULE.DR PO (09:40)
[2018-01-28] MEDS: PANTOPRAZOLE IV PUSH 40 MG VIAL. IVP (09:40)
[2018-01-28] MEDS: MORPHINE SULFATE 2 MG/ML DISP.SYRIN. IV (10:00)
[2018-01-28] MEDS: LIDO:MAALOX 1:1 20 ML SINGLE DOSE. SWSW (10:00)
[2018-01-28 11:04] LABS: POC GLUCOSE 212 mg/dL (70-99)
[2018-01-28] MEDS: IV NORMAL SALINE 1000ML BAG 1,000 ML IV (13:41)
[2018-01-28] MEDS ORDERED: PROPOFOL 20 ML IV (13:43)
[2018-01-28] MEDS ORDERED: LIDOCAINE 2% PF Vial for OR 5 ML VIAL. (13:44)
[2018-01-28 20:03] LABS: IMMEDIATE SPIN CROSSMATCH 1 1
[2018-01-28 20:36] LABS: POC GLUCOSE 198 mg/dL (70-99)
[2018-01-28 20:53] LABS: POC GLUCOSE 105 mg/dL (70-99)
[2018-01-28] MEDS: ATORVASTATIN CALCIUM 20 MG TABLET PO (21:27)
[2018-01-29] MEDS: ACETAMINOPHEN 325 MG TABLET. PO (06:04)
[2018-01-29] MEDS: oxyCODONE IR 5 MG TABLET PO (06:07)
[2018-01-29] MEDS: PANTOPRAZOLE 40 MG TABLET.DR. PO (07:41)
[2018-01-29 08:30] LABS: POC GLUCOSE 160 mg/dL (70-99)
[2018-01-29] MEDS: DULoxetine HCL 30 MG CAPSULE.DR PO (08:35)
[2018-01-29] MEDS: METOPROLOL SUCC 24HR ER 50 MG TAB.ER.24H. PO (08:36)
[2018-01-29] MEDS: NYSTATIN TOPICAL POWDER 15GM BOTTLE. TP ×2 (08:37→20:57)
[2018-01-29 08:39] LABS: HEMATOCRIT 25.9 % (36.0-47.0); HEMOGLOBIN 8.3 g/dL (12.0-15.5); MEAN CORPUSCULAR HGB CONC 32 g/dL (31-37)
[2018-01-29] MEDS: INSULIN LISPRO 300 UNITS/3 ML INSULN.PEN. SQ ×3 (08:42→17:09)
[2018-01-29 10:09] LABS: ANION GAP 10 (6-14); BLOOD UREA NITROGEN 36 mg/dL (7-20); CALCIUM 8.6 mg/dL (8.5-10.1); CARBON DIOXIDE 21 mmol/L (21-32); CHLORIDE 107 mmol/L (98-107); CREATININE 2.3 mg/dL (0.6-1.0); GFR 24.8; GLUCOSE 164 mg/dL (70-99); POTASSIUM 5.1 mmol/L (3.5-5.1); SODIUM 138 mmol/L (136-145)
[2018-01-29 11:55] LABS: POC GLUCOSE 118 mg/dL (70-99)
[2018-01-29 16:34] LABS: POC GLUCOSE 174 mg/dL (70-99)
[2018-01-29] MEDS: ATORVASTATIN CALCIUM 20 MG TABLET PO (20:55)
[2018-01-29 21:05] LABS: POC GLUCOSE 115 mg/dL (70-99)
[2018-01-30 07:41] LABS: POC GLUCOSE 138 mg/dL (70-99)
[2018-01-30] MEDS: PANTOPRAZOLE 40 MG TABLET.DR. PO (07:44)
[2018-01-30] MEDS: INSULIN LISPRO 300 UNITS/3 ML INSULN.PEN. SQ ×2 (08:00→12:20)
[2018-01-30] MEDS: DULoxetine HCL 30 MG CAPSULE.DR PO (08:27)
[2018-01-30] MEDS: METOPROLOL SUCC 24HR ER 50 MG TAB.ER.24H. PO (08:27)
[2018-01-30] MEDS: NYSTATIN TOPICAL POWDER 15GM BOTTLE. TP (08:28)
[2018-01-30 08:31] LABS: ADD MAN DIFF? NO
[2018-01-30 08:33] LABS: BASO % 1 % (0-3); EOS # 0.3 x10^3/uL (0.0-0.7); EOS % 3 % (0-3); HEMATOCRIT 31.9 % (36.0-47.0); HEMOGLOBIN 10.2 g/dL (12.0-15.5); LYMPH # 3.5 x10^3/uL (1.0-4.8); LYMPH % 35 % (24-48); MEAN CORPUSCULAR HEMOGLOBIN 24 pg (25-35); MEAN CORPUSCULAR HGB CONC 32 g/dL (31-37); MEAN CORPUSCULAR VOLUME 75 fL (79-100); MONO # 0.5 x10^3/uL (0.0-1.1); MONO % 5 % (0-9); NEUT # 5.6 x10^3uL (1.8-7.7); NEUT % 56 % (31-73); PLATELET COUNT 380 x10^3/uL (140-400); RED BLOOD COUNT 4.28 x10^6/uL (3.50-5.40); WHITE BLOOD COUNT 9.9 x10^3/uL (4.0-11.0)
[2018-01-30 08:53] LABS: ANION GAP 12 (6-14); BLOOD UREA NITROGEN 30 mg/dL (7-20); CALCIUM 9.2 mg/dL (8.5-10.1); CARBON DIOXIDE 22 mmol/L (21-32); CHLORIDE 104 mmol/L (98-107); CREATININE 2.1 mg/dL (0.6-1.0); GFR 27.6; GLUCOSE 170 mg/dL (70-99); POTASSIUM 4.7 mmol/L (3.5-5.1); SODIUM 138 mmol/L (136-145)
[2018-01-30] MEDS: ACETAMINOPHEN 325 MG TABLET. PO (09:33)
[2018-01-30 11:14] LABS: POC GLUCOSE 225 mg/dL (70-99)
[2018-01-30] MEDS: traMADol 50 MG TABLET PO (12:17)
== END 2018-01-30 14:23 | disposition home or self-care (01) | DRG 391 ==
LOC: 5 SOUTH 01-27 15:39 → ER 13:39 → 2 NORTH 16:00
PROC: 0DJ08ZZ Inspection of Upper Intestinal Tract, Via Natural or Artificial Opening Endoscopic (ICD-10-PCS; principal; 2018-01-28 13:00)
PROC: 30233N1 Transfusion of Nonautologous Red Blood Cells into Peripheral Vein, Percutaneous Approach (ICD-10-PCS; 2018-01-28 13:49)
DX: K21.0 Gastro-esophageal reflux disease with esophagitis (principal); N17.0 Acute kidney failure with tubular necrosis; E87.2 Acidosis; N18.4 Chronic kidney disease, stage 4 (severe); R71.0 Precipitous drop in hematocrit; M19.90 Unspecified osteoarthritis, unspecified site; E78.00 Pure hypercholesterolemia, unspecified; E11.22 Type 2 diabetes mellitus with diabetic chronic kidney disease; I16.0 Hypertensive urgency; E87.5 Hyperkalemia; E78.5 Hyperlipidemia, unspecified; K57.30 Diverticulosis of large intestine without perforation or abscess without bleeding; E86.0 Dehydration; I12.9 Hypertensive chronic kidney disease with stage 1 through stage 4 chronic kidney disease, or unspecified chronic kidney disease; Z90.710 Acquired absence of both cervix and uterus; Z82.49 Family history of ischemic heart disease and other diseases of the circulatory system; Z79.4 Long term (current) use of insulin; Z83.3 Family history of diabetes mellitus; Z79.899 Other long term (current) drug therapy
CPT/HCPCS: 36415; 36600; 70450; 71045; 74176; 80048; 80053; 80329; 81001; 82553; 82805; 82962; 83540; 83550; 83605; 83690; 83880; 84145; 84484; 85014; 85018; 85025; 85610; 85730; 86850; 86900; 86901; 86920; 87086; 93005; 96361; 96365; 96375; 96376; 97110-GP; 97161-GP; 97165-GO; 99285; 99285-25; C9113; J0360; J0690; J1815; J2001; J2270; J2405; J2704; J3010; J3490; J7030; P9016

== ENCOUNTER 2018-08-24 12:17 | Emergency (ER) | payer MEDICARE ==
[~2018-08-24] VITALS: Ht 167.6 cm; Wt 77.6 kg
[~2018-08-24 12:17] MED LIST: AMOX1TAB61 PO; ATOR20TA58 PO; CLIN300C8 PO; DICL100G18 TP; DIFL5DRO2 OP; DULO30CA2 PO; ERGO500027 PO; Enoxaparin Sodium SQ; FEBU40TA PO; GABA-585 PO; GLYB1TAB2 PO; HYDR-2761 PO; INSU100I13 SQ; INSU100I17 SQ; LACT1CAP19 PO; LEVO500T59 PO; LIDO700A4 TP; LINE600T PO; LOSA100T14 PO; LOSA25TA PO; MENT222L TP; METO-239 PO; METO50TA29 PO; MIRA25TA PO; NAPR250T6 PO; NIFE30TA2 PO; NYST15PO9 TP; OMEP20CA10 PO; ONDA4TAB12 PO; OXYC10TA PO; Pantoprazole PO; RANI300T3 PO; SITA50TA PO; SULF1TAB24 PO; WARF-78 PO
[2018-08-24 13:21] LABS: BASO # 0.1 x10^3/uL (0.0-0.2); BASO % 2 % (0-3); EOS # 0.3 x10^3/uL (0.0-0.7); EOS % 4 % (0-3); HEMATOCRIT 29.1 % (36.0-47.0); HEMOGLOBIN 9.2 g/dL (12.0-15.5); LYMPH % 29 % (24-48); MEAN CORPUSCULAR HEMOGLOBIN 23 pg (25-35); MEAN CORPUSCULAR HGB CONC 32 g/dL (31-37); MEAN CORPUSCULAR VOLUME 72 fL (79-100); MONO # 0.5 x10^3/uL (0.0-1.1); MONO % 7 % (0-9); NEUT % 58 % (31-73); PLATELET COUNT 281 x10^3/uL (140-400); RED BLOOD COUNT 4.07 x10^6/uL (3.50-5.40); RED CELL DISTRIBUTION WIDTH 15.2 % (11.5-14.5); WHITE BLOOD COUNT 6.9 x10^3/uL (4.0-11.0)
--- NOTE | 2018-08-24 13:26 | EKG ---
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
--- NOTE | 2018-08-24 13:27 | RAD ---
Single view of the chest. 08/24/2018 12:50 PM Indication: LE SWELLING CHECKING FOR CHF Comparison: Chest radiograph March 07, 2018 Findings: Improved inspiratory volume and decreased right basilar effusion/atelectasis is seen on the right. Cardiomegaly persists. There is mild central vascular congestion and mild interstitial interstitial edema present. No pneumothorax is seen. No acute osseous changes are identified. IMPRESSION: 1. Cardiomegaly and mild central vascular congestion/interstitial edema 2. Improved inspiratory volume and decreased right pleural effusion/atelectasis Electronically signed by: Td Cartagena MD (08/24/2018 1:23 PM) [id number]
[2018-08-24 13:28] LABS: CALCIUM 9.1 mg/dL (8.5-10.1); CREATININE 2.6 mg/dL (0.6-1.0); GFR 21.5; POTASSIUM 5.7 mmol/L (3.5-5.1)
--- NOTE | 2018-08-24 13:29 | RAD ---
3 views left hand 08/24/2018 12:58 PM Indication: Left hand swelling, no history of acute injury Comparison: None Findings: No evidence of acute fracture or dislocation is identified. Articular surfaces are uninterrupted. There is degenerative joint space narrowing involving the DIP joints, and base of the thumb. No significant para-articular osteopenia is identified. No acute soft tissue changes are seen. IMPRESSION: Osteoarthritis, without acute osseous abnormality Electronically signed by: Td Cartagena MD (08/24/2018 1:25 PM) [facility]
[2018-08-24 13:30] LABS: PROTHROMBIN TIME PATIENT 13.4 SEC (11.7-14.0)
[2018-08-24 13:34] LABS: ALBUMIN 3.4 g/dL (3.4-5.0); ALBUMIN/GLOBULIN RATIO 0.8 (1.0-1.7); TOTAL BILIRUBIN 0.4 mg/dL (0.2-1.0); TOTAL PROTEIN 7.9 g/dL (6.4-8.2)
--- NOTE | 2018-08-24 13:34 | PHYS DOC ---
Past Medical History Past Medical History: Anemia, Arthritis, Diabetes-Type II, High Cholesterol, Hypertension, Other Additional Past Medical Histor: CKD Past Surgical History: Hysterectomy, Other Additional Past Surgical Histo: Hemmoroids Alcohol Use: None Drug Use: None Adult General Chief Complaint Chief Complaint: LOWER EXTREMITY SWELLING HPI HPI Patient is a 78 year old female who presents with chief complaint of lower extremity swelling also swelling of the left hand symptoms have been going on for for 5 days she does have a history of chronic kidney disease she also has a history of DVTs in the past her breathing is fine she has no chest pain symptoms are mild to moderate slowly worsening she did bump her hand one month ago when the swelling has somewhat increased since then but got worse 4 days ago. She is not on Lasix Review of Systems Review of Systems Constitutional: Denies fever or chills [] Musculoskeletal: Denies back pain or joint pain [] Integument: Denies rash or skin lesions [] All other systems were reviewed and found to be within normal limits, except as documented in this note. Current Medications Current Medications Current Medications Medications (Trade) Dose Ordered Sig/Shyam Start Time Stop Time Status Last Admin Dose Admin Furosemide (Lasix) 80 mg 1X ONCE 08/24/18 14:00 08/24/18 14:01 DC 08/24/18 13:57 80 MG Sodium Polystyrene Sulfonate (Kayexalate) 15 gm 1X ONCE 08/24/18 14:00 08/24/18 14:01 DC 08/24/18 13:57 15 GM Allergies Allergies Allergies Coded Allergies Type Severity Reaction Last Updated Verified lisinopril Allergy Intermediate Hives, hives 03/05/18 Yes Physical Exam Physical Exam Constitutional: Well developed, well nourished, no acute distress, non-toxic appearance. [] HENT: Normocephalic, atraumatic, bilateral external ears normal, oropharynx moist, no oral exudates, nose normal. [] Eyes: PERRLA, EOMI, conjunctiva normal, no discharge. [] Neck: Normal range of motion, no tenderness, supple, no stridor. [] Cardiovascular:Heart rate regular rhythm, 2/6 MURMUR HEARD Lungs & Thorax: FAINT CRACKLES LUNG BASES. WALKS TO BATHROOM WITHOUT ANY RESPIRATORY DISTRESS AT ALL. Back: No tenderness, no CVA tenderness. [] Extremities: No tenderness, no cyanosis, no clubbing, ROM intact, 2 PLUS EDEMA B /L LOWER AND ALSO LEFT UPPER EXTREMITY MILD TTP OF THE LEFT HAND DIFFUSELY NO ERYTHEMA OR INUDRATION Neurologic: Alert and oriented X 3, normal motor function, normal sensory function, no focal deficits noted. Current Patient Data Lab Values Laboratory Tests Test 08/24/18 13:05 White Blood Count 6.9 x10^3/uL (4.0-11.0) Red Blood Count 4.07 x10^6/uL (3.50-5.40) Hemoglobin 9.2 g/dL (12.0-15.5) L Hematocrit 29.1 % (36.0-47.0) L Mean Corpuscular Volume 72 fL (79-100) L Mean Corpuscular Hemoglobin 23 pg (25-35) L Mean Corpuscular Hemoglobin Concent 32 g/dL (31-37) Red Cell Distribution Width 15.2 % (11.5-14.5) H Platelet Count 281 x10^3/uL (140-400) Neutrophils (%) (Auto) 58 % (31-73) Lymphocytes (%) (Auto) 29 % (24-48) Monocytes (%) (Auto) 7 % (0-9) Eosinophils (%) (Auto) 4 % (0-3) H Basophils (%) (Auto) 2 % (0-3) Neutrophils # (Auto) 4.0 x10^3uL (1.8-7.7) Lymphocytes # (Auto) 2.0 x10^3/uL (1.0-4.8) Monocytes # (Auto) 0.5 x10^3/uL (0.0-1.1) Eosinophils # (Auto) 0.3 x10^3/uL (0.0-0.7) Basophils # (Auto) 0.1 x10^3/uL (0.0-0.2) Platelet Estimate Adequate (ADEQUATE) Hypochromasia Mod Poikilocytosis Slight Anisocytosis Slight Microcytosis Slight Tear Drop Cells Occ Ovalocytes Occ Schistocytes Few Prothrombin Time 13.4 SEC (11.7-14.0) Prothrombin Time INR 1.1 (0.8-1.1) Sodium Level 134 mmol/L (136-145) L Potassium Level 5.7 mmol/L (3.5-5.1) H Chloride Level 101 mmol/L (98-107) Carbon Dioxide Level 23 mmol/L (21-32) Anion Gap 10 (6-14) Blood Urea Nitrogen 50 mg/dL (7-20) H Creatinine 2.6 mg/dL (0.6-1.0) H Estimated GFR (Cockcroft-Gault) 21.5 BUN/Creatinine Ratio 19 (6-20) Glucose Level 95 mg/dL (70-99) Calcium Level 9.1 mg/dL (8.5-10.1) Total Bilirubin 0.4 mg/dL (0.2-1.0) Aspartate Amino Transferase (AST) 18 U/L (15-37) Alanine Aminotransferase (ALT) 12 U/L (14-59) L Alkaline Phosphatase 143 U/L (46-116) H Troponin I Quantitative < 0.017 ng/mL (0.000-0.055) RX-Pfq-V-Type Natriuretic Peptide 650 pg/mL (0-449) H Total Protein 7.9 g/dL (6.4-8.2) Albumin 3.4 g/dL (3.4-5.0) Albumin/Globulin Ratio 0.8 (1.0-1.7) L Laboratory Tests 08/24/18 13:05 Laboratory Tests 08/24/18 13:05 EKG EKG []EKG is a sinus rhythm rate of around 60 I think the rate of 123 is incorrect I see P waves no STEMI no ischemia interpreted by me at time of encounter Radiology/Procedures Radiology/Procedures [] Impressions: IMPRESSION: 1. Cardiomegaly and mild central vascular congestion/interstitial edema. 2. Improved inspiratory volume and decreased right pleural effusion/atelectasis. Electronically signed by: Td Schmitz MD (08/24/2018 1:23 PM) [facility] DICTATED and SIGNED BY: TD SCHMITZ MD DATE: 08/24/18 4139 Course & Med Decision Making Course & Med Decision Making Pertinent Labs and Imaging studies reviewed. (See chart for details) []78-year-old female with history of CKD HTN HLD PRIOR DVT P/W LEFT UPER AND B/L LOWER EXT SWELLING CXR MILD CONGESTION POSSIBLY BUT SAT NORMAL IN ER. MILD POTASSIUM ELEVATION, CREATININE IS STABLE. SHE IS VERY WELL APPEARING OVERALL I DONT SEE ANY OBVIOUS EKG CHANGES. PT IS WITH HER DAUGHTER THEY ARE EAGER TO GO HOME, I THINK THIS IS REASOANBLE. PLAN IS: TAKE LASIX 40 BID, STOP LOSARTAN FOR THREE DAYS, DOUBLE METOPROLOL IN THE MEANTIME FOR BP. LOW POTASSIUM DIET F/U IN THREE DAYS FOR REHCECK OF POTASSIUM. SHE IS AGREEABLE TO THIS PLAN AND IT WAS REVIEWED IN DETAIL Nadine Disclaimer Nadine Disclaimer This electronic medical record was generated, in whole or in part, using a voice recognition dictation system. Departure Departure Impression: Primary Impression: Hyperkalemia Disposition: 01 HOME, SELF-CARE Condition: STABLE Referrals: JOHN SANTOS MD (PCP) Scripts Furosemide (FUROSEMIDE) 40 Mg Tablet 40 MG PO BID, #20 TAB Prov: CHAZ LOZADA MD 08/24/18 CHAZ LOZADA MD Aug 24, 2018 13:34
[2018-08-24] MEDS ORDERED: SODIUM POLYSTYRENE SULFONATE 15 GM/60 ML ORAL.SUSP. PO ONE (14:00)
[2018-08-24] MEDS ORDERED: FUROSEMIDE 40 MG/4 ML VIAL. IVP ONE (14:00)
--- NOTE | 2018-08-24 14:18 | RAD ---
Bilateral lower extremity venous ultrasound, 08/24/2018: History: Bilateral leg edema Duplex evaluation of the deep veins in the lower extremities was performed including grayscale, color-flow and spectral Doppler analysis. The femoral and popliteal veins demonstrate normal compressibility and normal responses to distal augmentation maneuvers. Color imaging of those vessels shows no evidence of intraluminal clot. Patent posterior tibial veins are evident in the calves. The peroneal veins were not satisfactorily visualized. IMPRESSION: There is no sonographic evidence of deep vein thrombosis in either lower extremity. Electronically signed by: Gino Ann MD (08/24/2018 2:13 PM) [facility]
--- NOTE | 2018-08-24 14:19 | RAD ---
Left upper extremity venous ultrasound, 08/24/2018: HISTORY: Left arm pain and swelling, previous DVT Duplex evaluation of the major veins in the left upper extremity was performed including grayscale, color-flow and spectral Doppler analysis. The left internal jugular, subclavian, axillary and paired brachial veins are patent. Patent cephalic and basilic veins are evident in the upper arm. Patent radial and ulnar veins are evident in the forearm. IMPRESSION: There is no duplex evidence of deep vein thrombosis in the left upper extremity. Electronically signed by: Gino Ann MD (08/24/2018 2:15 PM) [facility]
[2018-08-24 14:20] LABS: ANISOCYTOSIS SLIGHT; HYPOCHROMIA MOD; MICROCYTOSIS SLIGHT; PLT ESTIMATE ADEQUATE (ADEQUATE); POIKILOCYTOSIS SLIGHT
[2018-08-24 14:21] LABS: OVALOCYTES OCC; SCHISTOCYTES FEW; TEAR DROP CELLS OCC
[2018-08-24] MEDS ORDERED: FURO40TA4 PO (14:37)
[2018-08-24 15:24] VITALS: BP 179/82
== END 2018-08-24 15:30 | disposition home or self-care (01) ==
LOC: ER 12:17
DX: E87.5 Hyperkalemia (principal); I51.7 Cardiomegaly; R22.32 Localized swelling, mass and lump, left upper limb; M79.602 Pain in left arm; M79.605 Pain in left leg; E78.00 Pure hypercholesterolemia, unspecified; I12.9 Hypertensive chronic kidney disease with stage 1 through stage 4 chronic kidney disease, or unspecified chronic kidney disease; N18.9 Chronic kidney disease, unspecified; E11.22 Type 2 diabetes mellitus with diabetic chronic kidney disease; Z86.718 Personal history of other venous thrombosis and embolism; Z90.710 Acquired absence of both cervix and uterus; Z88.8 Allergy status to other drugs, medicaments and biological substances
CPT/HCPCS: 36415; 71045; 73130; 80053; 83880; 84484; 85025; 85610; 93005; 93970; 93971; 96374; 99284; J1940

== ENCOUNTER 2019-09-30 18:34 | Emergency (ER) | payer MEDICARE ==
[~2019-09-30] VITALS: Ht 170.2 cm; Wt 75.9 kg
[~2019-09-30 18:34] MED LIST changes: +ACET325T9 PO; +FURO40TA4 PO; -LINE600T PO; +LINE600T12 PO; -OMEP20CA10 PO; +OMEP20CA16 PO
[2019-09-30] MEDS ORDERED: IPRATRPIUM/ALBUTEROL 0.5/2.5MG 3 ML NEBU. NEB ONE (19:45)
--- NOTE | 2019-09-30 20:24 | RAD ---
EXAM: CHEST ONE VIEW. HISTORY: Shortness of breath. COMPARISON: 09/22/2019. FINDINGS: A frontal view of the chest is obtained. A right internal jugular hemodialysis catheter has its tip in the right atrium. Linear opacities in the right greater than left bases are consistent with atelectasis. There is no pneumothorax or clear pleural effusion. The heart is not enlarged. There is bilateral rotator cuff arthropathy and severe glenohumeral osteoarthritis. IMPRESSION: 1. Mild bibasilar atelectasis. Electronically signed by: Maritza Prado MD (09/30/2019 8:21 PM) [id number]
--- NOTE | 2019-09-30 20:46 | EKG ---
[facility] [address] [place] [address] Test Date: 2019-09-30 Test Time: 19:10:59 Pat Name: MELISSA UNDERWOOD Department: Room: Gender: F Stockkeeper: : 1940 Requested By: JODY BERNABE Order Number: [id number] Reading MD: Measurements Intervals [place] Rate: 92 P: 48 [place]: 146 QRS: -12 QRSD: 66 T: 2 QT: 388 QTc: 485 Interpretive Statements SINUS RHYTHM INTERPOLATED ATRIAL PREMATURE COMPLEX(ES) LEFTWARD AXIS PROLONGED QT NO SPECIFIC ECG ABNORMALITIES RI6.01 No previous ECG available for comparison
[2019-09-30 21:00] VITALS: BP 153/76
[2019-09-30] MEDS ORDERED: ONDANSETRON ODT 4 MG TAB.RAPDIS. PO ONE ×2 (21:15)
[2019-09-30] MEDS ORDERED: ONDANSETRON PF 4 MG/2 ML VIAL. IVP ONE (21:15)
[2019-09-30] MEDS ORDERED: VENTOLIN HFA18 GM INH (21:23)
--- NOTE | 2019-09-30 21:24 | PHYS DOC ---
Past Medical History Past Medical History: Diabetes-Type II, Hypertension, Renal Disease Additional Past Medical Histor: CKD Past Surgical History: Hysterectomy, Other Additional Past Surgical Histo: Hemmoroids Smoking Status: Never Smoker Alcohol Use: None Drug Use: None Adult General Chief Complaint Chief Complaint: SHORTNESS OF BREATH HPI HPI Patient is a 79 year old female with history of hypertension, diabetes mellitus, chronic renal failure on dialysis who presents with complaints of shortness of breath. Patient had recent hospitalization and new with started dialysis and was discharged home 2 days ago and had her first outpatient dial ysis today. Patient complaining of shortness of breath after her dialysis without complaining of chest pain, cough and congestion, fever and chills, sore throat and earache. Patient complaining of generalized weakness. Patient had O2 sat of 100% at room air at arrival to ER. Review of Systems Review of Systems Constitutional: Denies fever or chills [] Eyes: Denies change in visual acuity, redness, or eye pain [] HENT: Denies nasal congestion or sore throat [] Respiratory: Denies cough, reports shortness of breath [] Cardiovascular: No additional information not addressed in HPI [] GI: Denies abdominal pain, nausea, vomiting, bloody stools or diarrhea [] : Denies dysuria or hematuria [] Musculoskeletal: Denies back pain or joint pain [] Integument: Denies rash or skin lesions [] Neurologic: Denies headache, focal weakness or sensory changes [] Endocrine: Denies polyuria or polydipsia [] All other systems were reviewed and found to be within normal limits, except as documented in this note. Current Medications Current Medications Current Medications Medications (Trade) Dose Ordered Sig/Shyam Start Time Stop Time Status Last Admin Dose Admin Albuterol/ Ipratropium (Duoneb) 3 ml 1X ONCE 09/30/19 19:45 09/30/19 19:46 DC 09/30/19 19:38 3 ML Ondansetron HCl (Zofran Odt) 4 mg 1X ONCE 09/30/19 21:15 09/30/19 21:12 DC Ondansetron HCl (Zofran) 4 mg 1X ONCE 09/30/19 21:15 09/30/19 20:51 DC Allergies Allergies Allergies Coded Allergies Type Severity Reaction Last Updated Verified lisinopril Allergy Intermediate Hives, hives 03/05/18 Yes Physical Exam Physical Exam mildno acute distress, non-toxic appearance. [] HENT: Normocephalic, atraumatic, bilateral external ears normal, oropharynx moist, no oral exudates, nose normal. [] Eyes: PERRLA, EOMI, conjunctiva normal, no discharge. [] Neck: Normal range of motion, no tenderness, supple, no stridor. [] Cardiovascular:Heart rate regular rhythm, no murmur [] Lungs & Thorax: Bilateral breath sounds clear to auscultation [] Abdomen: Bowel sounds normal, soft, no tenderness, no masses, no pulsatile masses. [] Skin: Warm, dry, no erythema, no rash. [] Back: No tenderness, no CVA tenderness. [] Extremities: No tenderness, no cyanosis, no clubbing, ROM intact, no edema. [] Neurologic: Alert and oriented X 3, normal motor function, normal sensory function, no focal deficits noted. [] Psychologic: Affect normal, judgement normal, mood normal. [] Current Patient Data Vital Signs Vital Signs Date Time Temp Pulse Resp B/P (MAP) Pulse Ox O2 Delivery O2 Flow Rate FiO2 09/30/19 19:40 100 Lab Values Laboratory Tests Test 09/30/19 21:20 Glucose (Fingerstick) 82 mg/dL (70-99) EKG EKG EKG interpreted by me. EKG at 1910 showed normal sinus rhythm at rate of 92, PVCs, left fourth axis, prolonged QT at 485, no acute ST and T-wave elevation. Radiology/Procedures Radiology/Procedures [][facility] [address] [place] [address] IMAGING REPORT Signed PATIENT: MELISSA UNDERWOOD BACCOUNT: [id number] : 1940 LOCATION: ER AGE: 79 SEX: F EXAM STATUS: REG ER ORD. PHYSICIAN: JODY BERNABE MD REASON: shortness of breath PROCEDURE: PORTABLE CHEST 1V EXAM: CHEST ONE VIEW. HISTORY: Shortness of breath. COMPARISON: 09/22/2019. FINDINGS: A frontal view of the chest is obtained. A right internal jugular hemodialysis catheter has its tip in the right atrium. Linear opacities in the right greater than left bases are consistent with atelectasis. There is no pneumothorax or clear pleural effusion. The heart is not enlarged. There is bilateral rotator cuff arthropathy and severe glenohumeral osteoarthritis. IMPRESSION: 1. Mild bibasilar atelectasis. Electronically signed by: Maritza Prado MD (09/30/2019 8:21 PM) [id number] DICTATED and SIGNED BY: NATY PRADO MD DATE: 09/30/192020 Course & Med Decision Making Course & Med Decision Making Pertinent Labs and Imaging studies reviewed. (See chart for details) Evaluation of patient in ER showed 79-year-old female patient with complaining of shortness of breath after her first outpatient dialysis today. Patient had O2 sat of 100% with unremarkable lung sounds and chest x-ray. Patient was a very hard stick with several unsuccessful try and did not want to have more try to start IV line and obtain blood. Patient felt better after nebulizer treatment. Patient sided to leave AMA. Prescription for albuterol was given and patient was advised to continue with scheduled dialysis. Dragon Disclaimer Dragon Disclaimer This electronic medical record was generated, in whole or in part, using a voice recognition dictation system. Departure Departure Impression: Primary Impression: Shortness of breath Additional Impression: Noncompliance by refusing service Disposition: 07 AGAINST MEDICAL ADVICE (at 2121) Condition: IMPROVED Referrals: JOHN SANTOS MD (PCP) Patient Instructions: Shortness of Breath Additional Instructions: Follow-up with your scheduled dialysis Follow-up with your primary care physician in 2-3 days Return to ER if not getting better Scripts Albuterol Sulfate (VENTOLIN HFA INHALER) 18 Gm Hfa.aer.ad 2 PUFF INH QID for FOR ASTHMA, #1 INHALER 0 Refills Prov: JODY BERNABE MD 09/30/19 Problem Qualifiers JODY BERNABE MD Sep 30, 2019 21:24
== END 2019-09-30 21:30 | disposition left against medical advice (07) ==
LOC: ER 18:34
DX: R06.02 Shortness of breath (principal); Z91.19 Patient's noncompliance with other medical treatment and regimen; R53.1 Weakness; I12.9 Hypertensive chronic kidney disease with stage 1 through stage 4 chronic kidney disease, or unspecified chronic kidney disease; E11.22 Type 2 diabetes mellitus with diabetic chronic kidney disease; N18.9 Chronic kidney disease, unspecified; Z99.2 Dependence on renal dialysis; Z90.710 Acquired absence of both cervix and uterus; Z88.8 Allergy status to other drugs, medicaments and biological substances
CPT/HCPCS: 71045; 82962; 93005; 94640; 99285; J7620; Q0162

== ENCOUNTER 2020-05-06 06:12 | Emergency (ER) | payer MEDICARE ==
[~2020-05-06] VITALS: Ht 162.6 cm; Wt 78.6 kg
[~2020-05-06 06:12] MED LIST changes: -DICL100G18 TP; +DICL100G54 TP; +VENTOLIN HFA18 GM INH; -WARF-78 PO; +WARF5TAB2 PO
[2020-05-06 06:42] LABS: CALCIUM 8.9 mg/dL (8.5-10.1); CREATININE 3.8 mg/dL (0.6-1.0); GFR 13.8; POTASSIUM 4.5 mmol/L (3.5-5.1)
[2020-05-06 06:48] LABS: ALBUMIN 2.7 g/dL (3.4-5.0); ALBUMIN/GLOBULIN RATIO 0.5 (1.0-1.7); TOTAL BILIRUBIN 0.4 mg/dL (0.2-1.0); TOTAL PROTEIN 7.8 g/dL (6.4-8.2)
[2020-05-06 06:54] LABS: BASO # 0.1 x10^3/uL (0.0-0.2); BASO % 1 % (0-3); EOS # 0.1 x10^3/uL (0.0-0.7); EOS % 1 % (0-3); HEMATOCRIT 29.8 % (36.0-47.0); HEMOGLOBIN 9.2 g/dL (12.0-15.5); LYMPH % 7 % (24-48); MEAN CORPUSCULAR HEMOGLOBIN 23 pg (25-35); MEAN CORPUSCULAR HGB CONC 31 g/dL (31-37); MEAN CORPUSCULAR VOLUME 74 fL (79-100); MONO # 0.5 x10^3/uL (0.0-1.1); MONO % 4 % (0-9); NEUT # 12.5 x10^3/uL (1.8-7.7); NEUT % 88 % (31-73); PLATELET COUNT 341 x10^3/uL (140-400); RED BLOOD COUNT 4.03 x10^6/uL (3.50-5.40); RED CELL DISTRIBUTION WIDTH 18.2 % (11.5-14.5); WHITE BLOOD COUNT 14.2 x10^3/uL (4.0-11.0)
--- NOTE | 2020-05-06 06:57 | PHYS DOC ---
Past Medical History Past Medical History: Diabetes-Type II, Hypertension, Renal Disease Additional Past Medical Histor: CKD Past Surgical History: Hysterectomy, Other Additional Past Surgical Histo: Hemmoroids Smoking Status: Never Smoker Alcohol Use: None Drug Use: None General Adult EDM: Chief Complaint: NAUSEA/VOMITING/DIARRHA HPI: HPI: Patient is an 80-year-old female with past medical history of end-stage renal disease, diabetes, hypertension who presents to the emergency room with onset of nausea, vomiting, upper abdominal pain around 3 hours ago. At that time she was doing her dialysis. She does peritoneal dialysis every day. She states that she has not had any complications with her dialysis recently. She has not been ill. She denies any URI symptoms. She has not had any known fevers. She is never had surgery on her abdomen other than getting her peritoneal catheter placed. She has not yet taken her blood pressure medicine today. Review of Systems: Review of Systems: General: Denies fever, chills, sweats, fatigue Eyes: Denies drainage, blurred vision, eye redness HENT: Denies rhinorrhea, sore throat, earache Respiratory: Denies cough, shortness of breath, wheezing Cardiac: Denies edema, palpitations, chest pain GI: Reports abdominal pain, Nausea, vomiting MSK: Denies back pain, neck pain Skin: Denies rash, jaundice Neuro: Denies headache, dizziness reports lightheadedness Psychiatric: Denies SI/HI Heart Score: Risk Factors: Risk Factors: DM, Current or recent (<one month) smoker, HTN, HLP, family history of CAD, obesity. Risk Scores: Score 0 - 3: 2.5% MACE over next 6 weeks - Discharge Home Score 4 - 6: 20.3% MACE over next 6 weeks - Admit for Clinical Observation Score 7 - 10: 72.7% MACE over next 6 weeks - Early Invasive Strategies Current Medications: Current Medications Medications (Trade) Dose Ordered Sig/Shyam Start Time Stop Time Status Last Admin Dose Admin Labetalol HCl (Normodyne Iv Push) 10 mg 1X ONCE 05/06/20 07:00 05/06/20 07:01 Allergies: Allergies: Allergies Coded Allergies Type Severity Reaction Last Updated Verified lisinopril Allergy Intermediate Hives, hives 03/05/18 Yes Physical Exam: PE: General: Awake, alert, ill-appearing. Well Nourished, well hydrated. Cooperative HEENT: Atraumatic, EOMI, PERRL, airway patent, moist oral mucosa Neck: Supple, trachea midline Respiratory: CTA bilaterally, normal effort, no wheezing/crackles CV: RRR, no murmur, cap refill <2 GI: Soft, nondistended, epigastric tenderness, no masses MSK: No obvious deformities Skin: Warm, dry, intact Neuro: A&O x3, speech NL, sensory and motor grossly intact, no focal deficits Psych: Normal affect, normal mood, not suicidal or homicidal EKG: EKG: [] Radiology/Procedures: Radiology/Procedures: [] Course & Med Decision Making: Course & Med Decision Making Pertinent Labs and Imaging studies reviewed. (See chart for details) Patient is a 80 year-old female with a history of diabetes, hypertension, end- stage renal disease who presents to the Emergency Room complaining of abdominal pain, nausea, vomiting. On exam, patient has vomiting and epigastric pain. Due to patients history, age, and exam work up will need to be done to evaluate for intra-abdominal pathology. Work up ordered includes CBC, CMP, lipase, UA, CT abdomen and pelvis. Patient's pain does epigastric and a cardiac evaluation will be needed for atypical pain. Ddx includes gastroenteritis, hyperglycemia, cholecystitis, atypical ACS,. Work up was reviewed and was negative for acute pathology. Patient is feeling significantly better. Blood pressure and glucose improved. She was offered admission but would like to go home. Patient's test results and vitals while in the ED were fully reviewed and discussed with the patient. Patient is stable and at this time does not need admission to the hospital. We have discussed strict return precautions and the importance of following up with their Primary Care Physician. Patient stated understanding and was given an opportunity to ask any questions. Patient is in agreement with plan. Dragon Disclaimer: Dragon Disclaimer: This electronic medical record was generated, in whole or in part, using a voice recognition dictation system. Departure Departure Impression: Primary Impression: Nausea & vomiting Additional Impression: CRF (chronic renal failure) Disposition: 01 HOME, SELF-CARE Condition: IMPROVED Referrals: JOHN SANTOS MD (PCP) Patient Instructions: Nausea and Vomiting, [id number] Scripts Ondansetron Hcl (ZOFRAN) 4 Mg Tablet 1 TAB PO PRN Q6-8HRS for nausea, #12 TAB Prov: ALBIN PINEDA MD 05/06/20 Justicifation of Admission Dx: Justifications for Admission: Justification of Admission Dx: N/A ALBIN PINEDA MD May 06, 2020 06:57
[2020-05-06 07:00] LABS: BILIRUBIN,URINE NEGATIVE (NEG); CLARITY,URINE CLEAR; COLOR,URINE YELLOW; NITRITE,URINE NEGATIVE (NEG); PROTEIN,URINE NEGATIVE (NEG-TRACE); UROBILINOGEN,URINE 0.2 mg/dL (0.2 mg/dL)
[2020-05-06] MEDS ORDERED: ONDANSETRON PF 4 MG/2 ML VIAL. IVP ONE (07:00)
[2020-05-06] MEDS ORDERED: LABETALOL 20 MG/4 ML DISP.SYRIN. IVP ONE (07:00)
[2020-05-06] MEDS ORDERED: INSULIN REGULAR 100 UNIT/ML 3ML VIAL. IV ONE (07:15)
[2020-05-06 07:34] LABS: BACTERIA,URINE FEW /HPF (0-FEW); RBC,URINE 0 /HPF (0-2)
[2020-05-06 07:35] LABS: HYALINE CASTS, URINE FEW /HPF
[2020-05-06] MEDS ORDERED: MORPHINE SULFATE 10 MG/ML VIAL. IV ONE (07:45)
[2020-05-06] MEDS ORDERED: METOCLOPRAMIDE HCL 10 MG/2 ML VIAL. IVP ONE (07:45)
--- NOTE | 2020-05-06 08:21 | RAD ---
EXAM: CT Head without IV contrast CLINICAL HISTORY: vomiting, abd pain COMPARISON: None. TECHNIQUE: Routine CT of the head without contrast. PQRS compliance statement - One or more of the following individualized dose reduction techniques were utilized for this study: 1. Automated exposure control 2. Adjustment of the mA and/or kV according to patient size 3. Use of iterative reconstruction technique FINDINGS: There is no evidence of hemorrhage, mass or extra-axial fluid collection. Figueroa-white differentiation is maintained with no evidence of edema. There is no mass effect or shift of the intracranial structures. The ventricles, basilar cisterns and cortical sulci are normal in size and configuration for the patients stated age. The cerebellum and brainstem are unremarkable. The calvarium demonstrates no evidence of fracture or focal lesion. Diffuse sclerosis of the calvarium is unchanged. There is normal aeration of the visualized paranasal sinuses and mastoid air cells. The visualized portions of the orbits are normal. IMPRESSION: No evidence for acute intracranial process. Electronically signed by: Dangelo Smith MD (05/06/2020 8:18 AM) [id number]
--- NOTE | 2020-05-06 08:25 | RAD ---
CT scan of the abdomen and pelvis without contrast 05/06/2020 CLINICAL HISTORY: Vomiting and abdominal pain. TECHNIQUE: Unenhanced contiguous, 5 mm axial sections were obtained through the abdomen and pelvis. One or more of the following individualized dose reduction techniques were utilized for this study: 1. Automated exposure control. 2. Adjustment of the mA and/or kV according to patient size. 3. Use of iterative reconstruction technique. FINDINGS: Comparison study is dated 09/23/2019. Images through the lung bases demonstrate mild cardiomegaly. Bilateral lower lobe atelectasis and/or infiltrate is seen. Atelectasis and/or infiltrate is seen involving the right middle lobe. Small calcified granulomas are seen involving the right middle lobe. The liver is somewhat small with a nodular contour suggestive of cirrhosis. The spleen, pancreas, and adrenal glands are within normal limits. Rounded low-attenuation lesions are seen involving both kidneys which measure 2 to 3.2 cm in size. These likely represent cysts. No further imaging workup is recommended. Scattered atherosclerotic calcification of the abdominal aorta is seen. The abdominal aorta tapers normally. The gallbladder is well-distended. No free air is seen. There is no evidence of bowel obstruction. Images through the pelvis demonstrate the urinary bladder distended with urine. A peritoneal dialysis catheter is seen extending into the peritoneal cavity within the lower abdomen/superior pelvis. A moderate to large amount of free fluid is seen throughout the abdomen and pelvis which is presumably related to peritoneal dialysis. The osseous structures are unchanged. IMPRESSION: No acute abnormality is seen. Electronically signed by: Terrance Tabor MD (05/06/2020 8:22 AM) [id number]
[2020-05-06] MEDS ORDERED: ONDA4TAB7 PO (09:00)
[2020-05-06 09:04] VITALS: BP 111/64
[2020-05-06 10:35] LABS: % BANDS 1 % (0-9); % LYMPHS 17 % (24-48); % METAS 1 % (0-0); % MONOS 4 % (0-10); % SEGS 77 % (35-66); PLT ESTIMATE ADEQUATE (ADEQUATE)
[2020-05-06 10:36] LABS: ANISOCYTOSIS SLIGHT; HYPOCHROMIA MOD; MICROCYTOSIS PRESENT; OVALOCYTES OCC
--- NOTE | 2020-05-06 20:02 | EKG ---
[facility] [address] [place] [address] Test Date: 2020-05-06 Test Time: 06:32:37 Pat Name: MELISSA UNDERWOOD Department: Room: Gender: F Etl [employer] Developer: : 1940 Requested By: ALBIN PINEDA Order Number: [id number] Reading MD: Sridhar Gaston MD Measurements Intervals [place] Rate: 84 P: -5 LA: 160 QRS: -18 QRSD: 64 T: -7 QT: 384 QTc: 457 Interpretive Statements SINUS RHYTHM LEFTWARD AXIS CONSIDER LEFT VENTRICULAR HYPERTROPHY QRS(T) CONTOUR ABNORMALITY CONSISTENT WITH INFERIOR INFARCT AGE UNDETERMINED ABNORMAL ECG Electronically Signed On 05-07-2020 12:37:06 CDT by Sridhar Gaston MD
== END 2020-05-06 09:40 | disposition home or self-care (01) ==
LOC: ER 06:12
DX: R11.2 Nausea with vomiting, unspecified (principal); R10.13 Epigastric pain; R42 Dizziness and giddiness; E11.22 Type 2 diabetes mellitus with diabetic chronic kidney disease; I12.0 Hypertensive chronic kidney disease with stage 5 chronic kidney disease or end stage renal disease; N18.6 End stage renal disease; Z90.710 Acquired absence of both cervix and uterus; Z98.890 Other specified postprocedural states; Z88.8 Allergy status to other drugs, medicaments and biological substances
CPT/HCPCS: 36415; 70450; 74176; 80053; 81001; 82962; 84484; 85007; 85025; 93005; 96374; 96375; 99285; J1815; J2270; J2405; J2765; J3490

== ENCOUNTER 2020-06-17 19:12 | Emergency (ER) | payer MEDICARE ==
[~2020-06-17] VITALS: Ht 167.6 cm; Wt 82.0 kg
[~2020-06-17 19:12] MED LIST changes: +ONDA4TAB7 PO
--- NOTE | 2020-06-17 20:37 | PHYS DOC ---
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 Patient states she is going approximately 4 times a day, stool is now yellow and slimy, normal odor. Denies any recent antibiotics, foreign travel, poorly prepared foods or known sick contacts (lives with daughter/son). Does report right flank pain x1 month. Tolerating food/drink but only had chicken noodle soup today. Takes OxyContin 20 mg twice daily and ran out of this medication 2 days ago, does not see her primary care physician until June 30. States she takes this medication for her chronic back pain. Also c/o restless legs. Denies any trauma/falls. No anuria, still makes urine. Review of Systems: Review of Systems: Constitutional: Denies fever or chills. [] Eyes: Denies change in visual acuity. [] HENT: Denies nasal congestion or sore throat. [] Respiratory: Denies cough or shortness of breath or hemoptysis Cardiovascular: Denies chest pain or edema or syncope GI: Denies melena, hematochezia, hematemesis, nausea, vomiting, : Denies dysuria or hematuria Musculoskeletal: Denies back pain or joint pain. [] Integument: Denies rash. [] Neurologic: Denies headache, focal weakness or sensory changes. [] Or neck stiffness, no dizziness Endocrine: Denies polyuria or polydipsia. [] Lymphatic: Denies swollen glands. [] Psychiatric: Denies depression or anxiety. [] Heart Score: Risk Factors: Risk Factors: DM, Current or recent (<one month) smoker, HTN, HLP, family history of CAD, obesity. Risk Scores: Score 0 - 3: 2.5% MACE over next 6 weeks - Discharge Home Score 4 - 6: 20.3% MACE over next 6 weeks - Admit for Clinical Observation Score 7 - 10: 72.7% MACE over next 6 weeks - Early Invasive Strategies Allergies: Allergies: Allergies Coded Allergies Type Severity Reaction Last Updated Verified lisinopril Allergy Intermediate Hives, hives 03/05/18 Yes Physical Exam: PE: Constitutional: Well developed, well nourished, no acute distress, non-toxic appearance. [] HENT: Normocephalic, atraumatic, oropharynx dry, Eyes: EOMI, conjunctiva normal, no discharge. [] Neck: Normal range of motion, no tenderness, supple, no stridor. [] Cardiovascular:Heart rate regular rhythm, no murmur [] Lungs & Thorax: Bilateral breath sounds clear to auscultation [] Abdomen: Bowel sounds hyperactive, peritoneal dialysis catherter site c/d/no rash, soft, no tenderness, no masses, no pulsatile masses. [] Skin: Warm, dry, no erythema, no rash. [] Back: No midline tenderness, Extremities: No tenderness, no cyanosis, no clubbing, ROM intact, no edema. [] Neurologic: Alert and oriented X 3, normal motor function, normal sensory function, no focal deficits noted. [] Psychologic: Affect normal, judgement normal, mood normal. [] EKG: EKG: Sinus rhythm at 88 bpm, left axis deviation, normal intervals, no T wave inversions, no ST elevations or ST depressions Radiology/Procedures: Radiology/Procedures: IMAGING REPORT Signed PATIENT: MELISSA UNDERWOOD BACCOUNT: [id number] : 1940 LOCATION: ER AGE: 80 SEX: F EXAM STATUS: REG ER ORD. PHYSICIAN: ROSEMARIE ESCOBAR DO REASON: epigastric abd pain, diarrhea PROCEDURE: CT ABDOMEN PELVIS WO CONTRAST Exam: CT of abdomen and pelvis without contrast INDICATION: Epigastric abdominal pain, diarrhea TECHNIQUE: Sequential axial images through the abdomen and pelvis obtained without IV contrast. Sagittal and coronal reformatted images were reconstructed from the axial data and reviewed. Comparisons: 05/06/2020 FINDINGS: Heart size is normal. No pericardial effusion. Strandy opacities at the dependent portion lungs likely representing atelectasis pleural effusion. Evaluation of solid organs limited secondary to noncontrast technique. Liver, spleen, pancreas, gallbladder and adrenals are unremarkable. No perinephric inflammation or hydronephrosis. No renal or ureteral calculi are identified. Bladder is decompressed not well evaluated. Uterus is absent. No abnormal adnexal mass. Large and small bowel are unremarkable. Appendix is not identified. There is a moderate amount of free fluid noted within the abdomen. No free intra-abdominal air. There is a left lower quadrant peritoneal dialysis catheter noted. Abdominal aorta has a normal course and caliber. No enlarged abdominal lymph nodes are identified. No suspicious osseous lesions or acute fractures. IMPRESSION: 1. Moderate amount of intra-abdominal ascites with peritoneal dialysis catheter. 2. Otherwise, no acute process identified within the abdomen or pelvis. 3. Several cystic lesions the kidneys bilaterally incompletely characterized on this noncontrast exam. Exposure: One or more of the following in the visualized dose reduction techniques were utilized for this examination: 1. Automated exposure control 2. Adjustment of the MA and/or KV according to patient size 3. Use of iterative of reconstructive technique Electronically signed by: Marietta Gamble MD (06/17/2020 9:30 PM) [facility] DICTATED and SIGNED BY: MARIETTA GAMBLE MD DATE: 06/17/202129 Course & Med Decision Making: Course & Med Decision Making Pertinent Labs and Imaging studies reviewed. (See chart for details) Concern for diarrhea and a uti. Consider opiod withdrawal given diarrhea and lower extremity restlessness (pt with no mydriasis, sweating, yawning, or anxiety). Will dc with cipro to cover uti and diarrhea-250mg daily due to renal function. Patient afebrile, in no distress and well-appearing. Strict ED return precautions were given for worsening pain, dehydration, syncope, etc. Encouraged urgent outpatient follow-up with PMD. Life-threatening processes were considered but are low suspicion at this time, given history and physical exam. Pt was educated on all prescription medications and adverse effects. All patient's questions were answered and pt was stable at time of discharge. Life/limb-threatening differential includes but is not limited to, aortic dissection, aortic aneurysm, acute coronary syndrome, surgical abdomen (appendicitis, cholecystitis, ischemic bowel, strangulated hernia, etc), bowel obstruction or volvulus, bladder outlet obstruction, gastrointestinal bleeding, inflammatory bowel disease, peptic ulcer disease, sepsis, diverticular disease, ureterolithiasis, nephrolithiasis, ovarian or testicular torsion, ectopic , vaginal hemorrhage, or genitourinary infection. I spoken with the patient and her caregivers. I explained the patient's condition, diagnoses and treatment plan based on the information available to me at this time. I have answered the patient and her caregiver's questions and addressed any concerns. The patient and her caregivers have a good unders tanding of patient's diagnosis, condition and treatment plan as can be expected at this point. Vital signs have been stable. Patient's condition is stable and appropriate for discharge from the emergency department. Patient will pursue further outpatient evaluation with primary care physician or other designated or consulting physician as outlined in the discharge instructions. The patient and/or caregivers are agreeable to this plan of care and follow-up instructions have been explained in detail. The patient and/or caregivers have received these instructions in written form and have expressed an understanding of the discharge instructions. The patient and/or caregivers are aware that any significant change of condition or worsening of symptoms should prompt immediate return to this or the closest emergency department or call to 911. Nadine Disclaimer: Nadine Disclaimer: This electronic medical record was generated, in whole or in part, using a voice recognition dictation system. Departure Departure Impression: Primary Impression: Diarrhea Additional Impressions: UTI (urinary tract infection) CKD (chronic kidney disease) Microcytic anemia Disposition: 01 DC HOME SELF CARE/HOMELESS Condition: STABLE Referrals: JOHN SANTOS MD (PCP) Followup in 5-7 days for re-evaluation Patient Instructions: Diarrhea, Iron Deficiency Anemia, Urinary Tract Infection Additional Instructions: EMERGENCY DEPARTMENT GENERAL DISCHARGE INSTRUCTIONS Thank you for coming to [facility] Emergency Department (ED) today and trusting us with you care. We trust that you had a positive experience in our Emergency Department. If you wish to speak to the department management, you may call the Director at [phone]. YOUR FOLLOW UP INSTRUCTIONS ARE FOLLOWS: 1. Do you have a private Doctor? If you do not have a private doctor, please ask for a resource list of physicians or clinics that may be able to assist you with follow up care. 2. The Emergency Physicain has interpreted your x-rays. The X-Ray specialist will also review them. If there is a change in the findings, you will be notified in 48 hours when at all possible. 3. A lab test or culture has been done, your results will be reviewed and you will be notified if you need a change in treatment. ADDITIONAL INSTRUCTIONS AND INFORMATION: 1. Your care today has been supervised by a physician who is specially trained in emergency care. Many problems require more than one evaluation for a complete diagnosis and treatment. We recommend that you schedule your follow up appointment as recommended to ensure complete treatment of you illness or injury. If you are unable to obtain follow up care and continue to have a problem, or if your condition worsens, we recommend that you return to the ED. 2. We are not able to safely determine your condition over the phone nor are we able to give sound medical advice over the phone. For these safety reasons, if you call for medical advice we will ask you to come to the ED for further evaluation. 3. If you have any questions regarding these discharge instructions please call the ED at [phone]. SAFETY INFORMATION: In the interest of safety, wellness, and injury prevention; we encourage you to wear your sealbelt, if you smoke; quite smoking, and we encourage family to use a protective helmet for bicycling and other sporting events that present an increased risk for head injury. IF YOUR SYMPTOMS WORSEN OR NEW SYMPTOMS DEVELOP, OR YOU HAVE CONCERNS ABOUT YOUR CONDITION; OR IF YOUR CONDITION WORSENS WHILE YOU ARE WAITING FOR YOUR FOLLOW UP APPOINTMENT; EITHER CONTACT YOUR PRIMARY CARE DOCTOR, THE PHYSICIAN WHOSE NAME AND NUMBER YOU WERE GIVEN, OR RETURN TO THE ED IMMEDIATELY. Scripts Ciprofloxacin Hcl (CIPRO) 250 Mg Tablet 1 TAB PO DAILY for infection, #14 TAB Prov: ROSEMARIE ESCOBAR DO 06/17/20 ROSEMARIE ESCOBAR DO Jun 17, 2020 20:37
[2020-06-17 20:42] LABS: BILIRUBIN,URINE NEGATIVE (NEG); CLARITY,URINE CLEAR; COLOR,URINE AMBER; NITRITE,URINE NEGATIVE (NEG); PROTEIN,URINE 100 mg/dL (NEG-TRACE); UROBILINOGEN,URINE 0.2 mg/dL (0.2 mg/dL)
[2020-06-17 20:47] LABS: BACTERIA,URINE MODERATE /HPF (0-FEW)
--- NOTE | 2020-06-17 21:33 | RAD ---
Exam: CT of abdomen and pelvis without contrast INDICATION: Epigastric abdominal pain, diarrhea TECHNIQUE: Sequential axial images through the abdomen and pelvis obtained without IV contrast. Sagittal and coronal reformatted images were reconstructed from the axial data and reviewed. Comparisons: 05/06/2020 FINDINGS: Heart size is normal. No pericardial effusion. Strandy opacities at the dependent portion lungs likely representing atelectasis pleural effusion. Evaluation of solid organs limited secondary to noncontrast technique. Liver, spleen, pancreas, gallbladder and adrenals are unremarkable. No perinephric inflammation or hydronephrosis. No renal or ureteral calculi are identified. Bladder is decompressed not well evaluated. Uterus is absent. No abnormal adnexal mass. Large and small bowel are unremarkable. Appendix is not identified. There is a moderate amount of free fluid noted within the abdomen. No free intra-abdominal air. There is a left lower quadrant peritoneal dialysis catheter noted. Abdominal aorta has a normal course and caliber. No enlarged abdominal lymph nodes are identified. No suspicious osseous lesions or acute fractures. IMPRESSION: 1. Moderate amount of intra-abdominal ascites with peritoneal dialysis catheter. 2. Otherwise, no acute process identified within the abdomen or pelvis. 3. Several cystic lesions the kidneys bilaterally incompletely characterized on this noncontrast exam. Exposure: One or more of the following in the visualized dose reduction techniques were utilized for this examination: 1. Automated exposure control 2. Adjustment of the MA and/or KV according to patient size 3. Use of iterative of reconstructive technique Electronically signed by: Marietta Wells MD (06/17/2020 9:30 PM) [facility]
[2020-06-17 21:42] LABS: BASO % 1 % (0-3); EOS # 0.2 x10^3/uL (0.0-0.7); EOS % 2 % (0-3); HEMATOCRIT 30.1 % (36.0-47.0); HEMOGLOBIN 9.4 g/dL (12.0-15.5); LYMPH # 2.9 x10^3/uL (1.0-4.8); LYMPH % 30 % (24-48); MEAN CORPUSCULAR HEMOGLOBIN 23 pg (25-35); MEAN CORPUSCULAR HGB CONC 31 g/dL (31-37); MEAN CORPUSCULAR VOLUME 75 fL (79-100); MONO # 0.7 x10^3/uL (0.0-1.1); MONO % 8 % (0-9); NEUT # 5.7 x10^3/uL (1.8-7.7); NEUT % 59 % (31-73); PLATELET COUNT 325 x10^3/uL (140-400); RED CELL DISTRIBUTION WIDTH 17.1 % (11.5-14.5); WHITE BLOOD COUNT 9.6 x10^3/uL (4.0-11.0)
[2020-06-17 21:52] LABS: PROTHROMBIN TIME PATIENT 23.9 SEC (11.7-14.0)
[2020-06-17 21:55] LABS: CALCIUM 8.1 mg/dL (8.5-10.1); CREATININE 2.8 mg/dL (0.6-1.0); GFR 19.6; POTASSIUM 3.8 mmol/L (3.5-5.1)
[2020-06-17] MEDS ORDERED: oxyCODONE IR 5 MG TABLET PO ONE (22:00)
[2020-06-17 22:01] LABS: ALBUMIN 2.7 g/dL (3.4-5.0); DIRECT BILIRUBIN 0.1 mg/dL (0.0-0.2); MAGNESIUM 1.4 mg/dL (1.8-2.4); TOTAL BILIRUBIN 0.3 mg/dL (0.2-1.0); TOTAL PROTEIN 6.7 g/dL (6.4-8.2)
[2020-06-17] MEDS ORDERED: cefTRIAXone IV Push 1 GM VIAL. IVP ONE (22:30)
[2020-06-17] MEDS ORDERED: CIPR500T94 PO (22:42)
[2020-06-17 22:49] VITALS: BP 145/81
[2020-06-17] MEDS ORDERED: CIPR250T30 PO (22:55)
[2020-06-17] MEDS ORDERED: CIPROFLOXACIN HCL 250 MG TABLET. PO ONE (23:00)
== END 2020-06-17 23:05 | disposition home or self-care (01) ==
LOC: ER 19:12
DX: N39.0 Urinary tract infection, site not specified (principal); I12.0 Hypertensive chronic kidney disease with stage 5 chronic kidney disease or end stage renal disease; E11.22 Type 2 diabetes mellitus with diabetic chronic kidney disease; N18.6 End stage renal disease; Z99.2 Dependence on renal dialysis; D50.9 Iron deficiency anemia, unspecified; K21.9 Gastro-esophageal reflux disease without esophagitis; G89.29 Other chronic pain; Z86.718 Personal history of other venous thrombosis and embolism; Z79.01 Long term (current) use of anticoagulants; Z88.8 Allergy status to other drugs, medicaments and biological substances
CPT/HCPCS: 36415; 74176; 80048; 80076; 81001; 82550; 83690; 83735; 84484; 85025; 85610; 85730; 87086; 96374; 99285; J0696

== ENCOUNTER → 2020-10-11 | Outpatient (CLI) | payer MEDICARE ==
[~2020-10-11] MED LIST changes: +CIPR250T30 PO; +CIPR500T94 PO; -CLIN300C8 PO; +CLIN300C9 PO; +NAPR-699 PO; -NAPR250T6 PO
== END ==
LOC: LAB 12:05
PROVIDERS: ATTEND Internal Medicine Nephrology
DX: E87.6 Hypokalemia (principal)
CPT/HCPCS: 36415; 84132